=== PATIENT | female | born 1950 | race Caucasian/White ===

== ENCOUNTER → 2024-02-03 | Outpatient (CLI) | payer MEDICARE, SELFPAY ==
--- NOTE | 2024-02-03 11:14 | NEURO ---
NCS and/or EMG Patient Report Ordering Doctor: Freddy Claire DATE OF SERVICE: 02/03/24 Raven presents with numbness and tingling both hands, worse on the right side. Electrodiagnostic findings: Right median motor nerve demonstrates prolonged latency with normal amplitude and conduction velocity. Left median motor nerve demonstrates normal distal latency and amplitude with normal conduction velocity. Ulnar motor response is normal bilaterally. Normal median and ulnar F?waves. Prolonged median sensory latency at the wrist bilaterally. Normal ulnar and radial sensory responses. Needle EMG testing was performed in the upper limbs. All muscles tested showed no evidence of denervation with normal motor unit action potentials. Electrodiagnostic impression: This is an abnormal study in the upper limbs. 1. Electrodiagnostic findings suggestive of bilateral median mononeuropathy. This is consistent with a mild to moderate right carpal tunnel syndrome and a mild left carpal tunnel syndrome. 2. No electrodiagnostic evidence is noted for cervical radiculopathy. Multi Select Codes Neurology Neurology Interp Codes: 69352-55 Musc test done w/n test comp (interp) (2) and 59728-02 Nrv cndj test 9-10 studies (interp)
== END | disposition home or self-care (01) ==
PROVIDERS: PCP Student in an Organized Health Care Education/Training Program; Referring Provider Orthopaedic Surgery Sports Medicine; Visit Provider Orthopaedic Surgery Sports Medicine
DX: G56.03 Carpal tunnel syndrome, bilateral upper limbs (principal)
CPT/HCPCS: 95886; 95911

== ENCOUNTER 2024-03-09 05:54 | Day surgery (SDC) | payer MEDICARE, SELFPAY ==
--- OUTSIDE RECORDS SUMMARY | 2024-03-09 05:56 | XMS RPT_ITS | CCD ---
Author Organization [facility] Care Team Providers Care Supervising Law Enforcement Analyst Name Role Phone BO CORDERO Attending Unavailable NONSTAFF, PHYSI Primary Care Unavailable Dallas Morrison DO Primary Care Provider Mendez DODallas Primary Care Provider Dallas Morrison DO Primary Care Provider Mendez DODallas Primary Care Provider DALLAS MORRISON Primary Care Unavailable DALLAS MORRISON Referring Unavailable DALLAS MORRISON Primary Care Unavailable CHEPE HOANG Attending Unavailable CHEPE HOANG Referring Unavailable DALLAS MORRISON Primary Care Unavailable CHEPE HOANG Referring Unavailable DALLAS MORRISON Primary Care Unavailable DALLAS MORRISON Primary Care Unavailable CHEPE HOANG Attending Unavailable Medications Current Medications Medication Drug Class(es) Dates Sig (Normalized) Sig (Original) amitriptyline hydrochloride 50 mg oral tablet (20 sources) Tricyclic Antidepressant Start: 09-28-2020 End: 11-27-2023 take 1 tablet by mouth once daily at bedtime amitriptyline (ELAVIL) 50 mg tablet Take 1 tablet by mouth daily at bedtime. 90 tablet 3 11/27/2023 Active Comment on above: Take 1 tablet by ki th daily at bedtime. azithromycin 250 mg oral tablet (1 source) Macrolide Antimicrobial Start: 03-11-2022 End: 03-16-2022 azithromycin (ZITHROMAX Z-LLUVIA) 250 mg tablet Indications: Travel advice encounter Take 2 tablets day one, then, 1 tablet daily until gone. 6 tablet 0 03/11/2022 03/16/2022 Active Comment on above: Take 2 tablets day o ne, then, 1 tablet daily until gone. ciprofloxacin 500 mg oral tablet (3 sources) Quinolone Antimicrobial Start: 03-11-2022 End: 03-18-2022 take 1 tablet by mouth twice daily ciprofloxacin HCl (CIPRO) 500 mg tablet Indications: Acute cystitis without hematuria Take 1 tablet by mouth twice daily for 7 days. 14 tablet 1 03/11/2022 03/18/2022 Active Comment on above: Take 1 tablet by ki th twice daily for 7 days. levothyroxine sodium 0.075 mg oral tablet (19 sources) l-Thyroxine Start: 01-08-2023 End: 11-27-2023 take 1 tablet by mouth once daily for thyroid dysfunction levothyroxine (LEVOXYL) 75 mcg tablet Take 1 tablet by mouth once daily. Take on empty stomach. For thyroid. 90 tablet 1 11/27/2023 Active Start: 03-31-2022 End: 01-08-2023 take 1 tablet by mouth once daily for thyroid dysfunction levothyroxine (LEVOXYL) 50 mcg tablet Indications: Subclinical hypothyroidism Take 1 tablet by mouth once daily. Take on empty stomach. For Thyroid 30 tablet 1 03/31/2022 06/19/2022 Discontinued Comment on above: Take 1 tablet by ki th once daily. Take on empty stomach. For Thyroid Take 1 tablet by ki th once daily. Take on empty stomach. For thyroid. losartan potassium 25 mg oral tablet (20 sources) Angiotensin 2 Receptor Anabelle Start: 09-29-19 21 End: 11-27-19 take 1 tablet by mouth once daily losartan (COZAAR) 25 mg tablet Indications: Hypertension, essential Take 1 tablet by mouth once daily. 90 tablet 3 11/27/2023 Active Comment on above: Take 1 tablet by ki th once daily. ondansetron 4 mg disintegrating oral tablet (18 sources) Serotonin-3 Receptor Antagonist Start: 03-11-20 End: 11-27-19 24 take 1 tablet by mouth every six hours as needed for nausea ondansetron orally disintegrating (ZOFRAN ODT) 4 mg disintegrating tablet Indications: Travel advice encounter Take 1 tablet by mouth every 6 hours as needed for nausea/vomiting. 20 tablet 1 06/19/2022 11/27/2023 Discontinued Comment on above: Take 1 tablet by ki th every 6 hours as needed for nausea/vomiting. pantoprazole 40 mg delayed release oral tablet (20 sources) Proton Pump Inhibitor Start: 12-20-19 End: 11-27-19 24 take 1 tablet by mouth once daily pantoprazole DR (PROTONIX) 40 mg tablet Take 1 tablet by mouth once daily. 90 tablet 3 11/27/2023 Active Start: 12-17-2021 End: 12-19-2021 pantoprazole (PROTONIX) 40 m g grps Take 1 Packet by mouth DAILY (6 AM). For LPR reflux 90 Each 1 12/17/2021 12/19/2021 Discontinued Comment on above: Take 1 Packet by ki th DAILY (6 AM). For LPR reflux Take 1 tablet by ki th daily before breakfast. Take on empty stomach, 1/2 hr before meal. TAKE 1 TABLET BY KI TH 30 MINUTES BEFORE BREAKFAST ON AN EMPTY STOMACH Take 1 tablet by ki th once daily. rosuvastatin calcium 5 mg oral tablet (20 sources) HMG-CoA Reductase Inhibitor Start: 1 End: 4 take 1 tablet by mouth once daily at bedtime rosuvastatin (CRESTOR) 5 mg tablet Indications: Mixed hyperlipidemia Take 1 tablet by mouth daily at bedtime. 90 tablet 3 11/27/2023 Active Comment on above: Take 1 tablet by ki th daily at bedtime. sertraline 100 mg oral tablet (20 sources) Serotonin Reuptake Inhibitor Start: 2 End: 5 take 1 tablet by mouth once daily sertraline (ZOLOFT) 100 mg tablet Indications: Reactive depression Take 1 tablet by mouth once daily. For mood 90 tablet 1 11/27/2023 05/25/2024 Active Start: 06-05-2021 End: 12-17-2021 take 1 tablet by mouth once daily sertraline (ZOLOFT) 50 mg tablet Indications: Reactive depression Take 1 tablet by mouth once daily. 90 tablet 1 06/05/2021 12/17/2021 Discontinued Comment on above: Take 1 tablet by ki th once daily. Take 1 tablet by ki th once daily. For mood topiramate 25 mg oral tablet (20 sources) Start: 03-05-20 21 End: 11-27-19 24 take 1 tablet by mouth twice daily topiramate (TOPAMAX) 25 mg tablet Indications: Migraine without aura and without status migrainosus, not intractable Take 1 tablet by mouth two times a day. 120 tablet 5 11/27/2023 Active Comment on above: Take 1 tablet by ki twice daily. triamcinolone acetonide 1 mg/ml topical cream (18 sources) Corticosteroid Start: 03-11-20 End: 11-27-19 triamcinolone acetonide (KENALOG) 0.1 % cream Indications: Dermatitis Apply 1 application to affected area twice daily as needed. Apply sparingly to area for rash/itching. 30 g 1 06/19/2022 11/27/2023 Discontinued Comment on above: Apply 1 application to affected area twice daily as needed. Apply sparingly to area for rash/itching. Completed/Discontinued Medications Medication Drug Class(es) Dates Sig (Normalized) Sig (Original) naproxen 500 mg oral tablet (2 sources) Nonsteroidal Anti-inflammatory Drug Start: 11-27-2023 End: 12-11-2023 take 1 tablet by mouth twice daily at mealtime naproxen (NAPROSYN) 500 mg tablet Indications: Right hand pain , Right hand weakness Take 1 tablet by mouth two times a day with meals for 14 days. Take with food. 28 tablet 11/27/2023 12/11/2023 Problems Active Problems Problem Classification Problem Date Documented Date Episodic/Chronic Administrative/social admission (15 sources) Patient encounter status; Translations: [Encounter for health counseling related to travel] Onset: 06-07-2007 Resolved: 11-21-2009 Episodic Disorders of lipid metabolism (20 sources) Hyperlipidemia; Translations: [Hyperlipidemia, unspecified] Onset: 11-02-2013 11-02-2013 Chronic Esophageal disorders (20 sources) Gastro-esophageal reflux disease with esophagitis; Translations: [Gastroesophageal reflux disease with esophagitis without hemorrhage] Onset: 12-17-2021 Chronic Essential hypertension (20 sources) Essential hypertension; Translations: [Essential (primary) hypertension] Onset: 03-05-2021 03-05-2021 Chronic Genitourinary symptoms and ill-defined conditions (2 sources) Abnormal urine odor; Translations: [Unspecified abnormal findings in urine] Episodic Headache; including migraine (20 sources) Migraine; Translations: [Migraine, unspecified, not intractable, without status migrainosus] Onset: 02-15-2005 11-28-2015 Chronic Mood disorders (20 sources) Reactive depression (situational); Translations: [Major depressive disorder, single episode, unspecified] Onset: 12-17-2021 Chronic Nutritional deficiencies (3 sources) Vitamin D deficiency; Translations: [Vitamin D deficiency, unspecified] Onset: 02-17-2024 01-06-2023 Chronic Nutritional deficiencies (1 source) Iron deficiency; Translations: [Iron deficiency] 01-06-2023 Episodic Other aftercare (1 source) Other residential (current) drug therapy; Translations: [OTHER HALFWAY (CURRENT) DRUG THERAPY] Onset: 07-16-2018 Episodic Other connective tissue disease (1 source) Pain in right hand; Translations: [Pain in right hand] 11-27-2023 Episodic Other connective tissue disease (1 source) Trigger thumb of right hand; Translations: [Trigger thumb, right thumb] 11-27-2023 Episodic Other connective tissue disease (1 source) Weakness of right hand; Translations: [Other symptoms and signs involving the musculoskeletal system] 11-27-2023 Episodic Other connective tissue disease (1 source) Pain in right hand; Translations: [Right hand pain] Onset: 11-27-2023 Episodic Other connective tissue disease (1 source) Other symptoms and signs involving the musculoskeletal system; Translations: [Right hand weakness] Onset: 11-27-2023 Episodic Other non-traumatic joint disorders (1 source) Effusion, left knee; Translations: [EFFUSION, LEFT KNEE] Onset: 07-16-2018 Episodic Other screening for suspected conditions (not mental disorders or infectious disease) (3 sources) Thyroid function tests abnormal; Translations: [Abnormal results of thyroid function studies] Onset: 10-07-2023 Episodic Residual codes; unclassified (1 source) Pain; Translations: [Pain, unspecified] 12-14-2023 Episodic Residual codes; unclassified (1 source) Other specified postprocedural states; Translations: [OTHER SPECIFIED POSTPROCEDURAL STATES] Onset: 07-16-2018 Screening and history of mental health and substance abuse codes (1 source) Encounter for screening examination for other mental health and behavioral disorders; Translations: [Encounter for screening examination for other mental health and behavioral disorders] Onset: 02-17-2024 Episodic Thyroid disorders (6 sources) Subclinical hypothyroidism; Translations: [Other specified hypothyroidism] Onset: 02-17-2024 Chronic Past or Other Problems Problem Classification Problem Date Documented Date Episodic/Chronic Allergic reactions (20 sources) Inflammatory dermatosis; Translations: [Dermatitis, unspecified] Onset: 03-11-2022 Episodic Diabetes mellitus without complication (20 sources) Impaired fasting glycemia; Translations: [Impaired fasting glucose] Onset: 03-05-2021 03-05-2021 Episodic Headache; including migraine (7 sources) Headache; Translations: [Headache] Onset: 01-13-2006 Resolved: 11-21-2009 11-21-2009 Episodic Malaise and fatigue (20 sources) Fatigue; Translations: [Other fatigue] Onset: 03-11-2022 Episodic Mycoses (7 sources) Onychomycosis due to dermatophyte ; Translations: [Tinea unguium] Onset: 05-19-2006 Resolved: 11-21-2009 11-21-2009 Episodic Other circulatory disease (20 sources) Clearing throat - hawking; Translations: [Other specified symptoms and signs involving the circulatory and respiratory systems] Onset: 12-17-2021 Episodic Other skin disorders (20 sources) Loss of hair; Translations: [Nonscarring hair loss, unspecified] Onset: 03-11-2022 Episodic Other upper respiratory disease (20 sources) Hoarse; Translations: [Dysphonia] Onset: 12-17-2021 Episodic Residual codes; unclassified (20 sources) Postmenopausal state; Translations: [Asymptomatic menopausal state] Onset: 03-05-2021 03-05-2021 Episodic Sprains and strains (20 sources) Strain of hamstring muscle; Translations: [Strain of muscle, fascia and tendon of the posterior muscle group at thigh level, left thigh, initial encounter] Onset: 03-13-2017 03-13-2017 Episodic Urinary tract infections (20 sources) Acute cystitis; Translations: [Acute cystitis without hematuria] Onset: 03-11-2022 Episodic Results Test Name Value Interpretation Reference Range Facility CNOVon 02-17-2024 CNOV Office Visit (FAMPWS) RAVEN [id number]) 1950 F Date Time Provider Department 02/17/24 2:20 PM CHEPE HOANG During your visit today, we recorded the following information about you: Pulse Respiration Blood pressure Weight 86/minute 16/minute 118/78 69.1 kg Height 1.62 m Chepe Hoang APRN.CNP 02/17/2024 2:59 PM Signed Raven Jj is a 73 year old female here for a Medicare wellness visit. Medicare Health Risk Assessment General Health Exercise: Minutes/Day 30 min Exercise: Days/Week 4 days Alcohol: Daily Use 2-3 times a week Alcohol: Drinks/Day 1 or 2 Alcohol: 6 or more drinks Never Feel off balance Yes Concerns: Teeth/Dentures No Concerns: Sexual function No Troubled by feelings None of the above Frequency: Eating healthy diet Nearly every day ADLs requiring help None of the above Safety precautions in home/vehicle Yes Smoke, vape, chews tobacco No Difficulty hearing No Difficulty seeing Yes Current Providers Specialists: I have reviewed specialist-related care of the patient in the medical record. Medical/Family history review Reviewed and updated problem list, medical/surgical/fam beulah/social history, medications, and allergies. Opioid use review Opioid Medications (last 90 days) No data to display Anxiety/Depression screening PHQ-9 Score: 2 (Minimal Depression) Recommendation: no further intervention at this time Cognitive screening Mini Cog Score: 3 Cognitive screening reviewed and No further action needed (score 3-5). Functional Observation Was the patient's Timed Up AND Go test unsteady or >= 12 seconds? No Advance Care Planning Surrogate decision maker and/or advance care plan documented Joe Sweat Measurements BP 118/78 (BP Site: Left Arm, BP Position: Sitting, BP Cuff Size: Regular Adult) Pulse 86 Resp 16 Ht 162 cm (5' 3.78 ) Wt 69.1 kg (152 lb 5.4 oz) SpO2 96% BMI 26.33 kg/m? Vision Screening: Follows with optometry/ophthalmol ogy Assessment/Plan Medicare annual wellness visit, subsequent (Z00.00) - Counseled on healthy diet and regular exercise - Fall avoidance information provided - Personalized prevention plan provided;tatianna Hoang APRN.CNP Allergies As of Date: 02/17/2024 (No Known Allergies) Date Reviewed: 02/17/2024 Reviewed by: Leola Garcia MA - Fully Assessed Reason for Visit: Medicare Wellness Exam [4060] Primary Visit Diagnosis:Mixed hyperlipidemia [E78.2] Other Visit Diagnoses:Encounter for screening examination for other mental health and behavioral disorders [Z13.39] Hypertension, essential [I10] Impaired fasting glucose [R73.01] Subclinical hypothyroidism [E03.8] Vitamin D deficiency [E55.9] Encounter for vitamin deficiency screening [Z13.21] Order(s):ANXIETY SCREENING [1091821] Order #: [id number]: 1 COMPLETE BLOOD COUNT [SQCBC] Order #: [id number] FUTURE COMPREHENSIVE METABOLIC PANEL [SQCMP] Order #: [id number] FUTURE VITAMIN B12 [SQB12] Order #: [id number] FUTURE VITAMIN D 25 HYDROXY [SQVITD] Order #: [id number] FUTURE HEMOGLOBIN A1C [BEHXN7Z] Order #: [id number] FUTURE LIPID PANEL BASIC [SQLIPB] Order #: [id number] FUTURE THYROID STIMULATING HORMONE [SQTSH] Order #: [id number] FUTURE T4 FREE/FREE THYROXINE [SQFT4] Order #: [id number] FUTURE T3 [SQT3] Order #: [id number] FUTURE Prescriptions as of 02/17/2024 - amitriptyline (ELAVIL) 50 mg tablet Take 1 tablet by mouth daily at bedtime. - sertraline (ZOLOFT) 100 mg tablet Take 1 tablet by mouth once daily. For mood - levothyroxine (LEVOXYL) 75 mcg tablet Take 1 tablet by mouth once daily. Take on empty stomach. For thyroid. - losartan (COZAAR) 25 mg tablet Take 1 tablet by mouth once daily. - pantoprazole DR (PROTONIX) 40 mg tablet Take 1 tablet by mouth once daily. - topiramate (TOPAMAX) 25 mg tablet Take 1 tablet by mouth two times a day. - rosuvastatin (CRESTOR) 5 mg tablet Take 1 tablet by mouth daily at bedtime. Problem List As Of Date 02/17/2024 Noted Resolved Migraine headache [G43.909] 02/15/2005 Headache [R51] 01/13/2006 11/21/2009 Dermatophytosis of Nail [B35.1] 05/19/2006 11/21/2009 Encounter for Long-Term (Current) Use of Other *06/07/2007 11/21/2009 Routine gynecological examination [Z01.419] 11/02/2013 Hyperlipidemia [E78.5] 11/02/2013 Left hamstring muscle strain [S76.312A] 03/13/2017 Hypertension, essential [I10] 03/05/2021 Impaired fasting glucose [R73.01] 03/05/2021 Post-menopausal [Z78.0] 03/05/2021 Gastroesophageal reflux disease with esophagiti* Hoarseness [R49.0] 12/17/2021 Throat clearing [R09.89] 12/17/2021 Mixed hyperlipidemia [E78.2] 12/17/2021 Reactive depression [F32.9] 12/17/2021 Acute cystitis without hematuria [N30.00] 03/11/2022 Hair loss [L65.9] 03/11/2022 Dermatitis [L30.9] 03/11/2022 Fatigue [R53.83] (more content not included)... Normal [facility] XR Hand - right PA and Later al and Obliqueon 12-01-2023 IMPRESSION: 1. Osteoarthritis of the right hand Ticket Speculator: GWYN Transcribe Date/Time: Dec 01 2023 5:35P Dictated by : INES DAN MD This examination was interpreted and the report reviewed and electronically signed by: INES DAN MD on Dec 01 2023 5:36PM [facility] DIVISION OF RADIOLOGY * * *Final Report* * * DATE OF EXAM: Nov 28 2023 8:50AM WOX [id number] - XR HAND 3V PA/LAT/OBL RT / PROCEDURE REASON: multiple diagnoses * * * * Physician Interpretation * * * * HAND RADIOGRAPHS - RIGHT HISTORY: Right hand pain Right hand weakness TECHNOLOGIST PROVIDED HISTORY (if applicable): Pain and swelling though out the fingers of the right hand x 2 weeks. No injury TECHNIQUE: XR HAND 3V PA/LAT/OBL RT COMPARISON: None available RESULT: Bone mineralization appears normal. Right hand: There avfb-sd-guzfrxcy first are no visualized articular erosions in the hand. No focal bony abnormality is identified. Joint spaces are preserved, and there is no soft tissue swelling. Narrowing of the first CMC and triscaphe joints DIVISION OF RADIOLOGY Provider, [facility] [place] - 12/01/2023 * * *Final Report* * * DATE OF EXAM: Nov 28 2023 8:50AM WOX 5346 - XR HAND 3V PA/LAT/OBL RT / PROCEDURE REASON: multiple diagnoses * * * * Physician Interpretation * * * * HAND RADIOGRAPHS - RIGHT HISTORY: Right hand pain Right hand weakness TECHNOLOGIST PROVIDED HISTORY (if applicable): Pain and swelling though out the fingers of the right hand x 2 weeks. No injury TECHNIQUE: XR HAND 3V PA/LAT/OBL RT COMPARISON: None available RESULT: Bone mineralization appears normal. Right hand: There yxaz-hr-mqzbfdfg first are no visualized articular erosions in the hand. No focal bony abnormality is identified. Joint spaces are preserved, and there is no soft tissue swelling. Narrowing of the first CMC and triscaphe joints IMPRESSION IMPRESSION: 1. Osteoarthritis of the right hand [facility] Transcribe Date/Time: Dec 01 2023 5:35P Dictated by : INES DAN MD This examination was interpreted and the report reviewed and electronically signed by: INES DAN MD on Dec 01 2023 5:36PM EST [facility] XR Hand - right PA and Later al and ObliqueOrdered By: [facility] Provider on 12-01-2023 [facility] XR HAND 3V PA/LAT/OBL RTon 0 11-28-2023 XR HAND 3V PA/LAT/OBL RT * * *Final Report* * * DATE OF EXAM: Nov 28 2023 8:50AM WOX 5346 - XR HAND 3V PA/LAT/OBL RT / PROCEDURE REASON: multiple diagnoses * * * * Physician Interpretation * * * * HAND RADIOGRAPHS - RIGHT HISTORY: Right hand pain Right hand weakness TECHNOLOGIST PROVIDED HISTORY (if applicable): Pain and swelling though out the fingers of the right hand x 2 weeks. No injury TECHNIQUE: XR HAND 3V PA/LAT/OBL RT COMPARISON: None available RESULT: Bone mineralization appears normal. Right hand: There rpql-an-qscahfhd first are no visualized articular erosions in the hand. No focal bony abnormality is identified. Joint spaces are preserved, and there is no soft tissue swelling. Narrowing of the first CMC and triscaphe joints IMPRESSION: 1. Osteoarthritis of the right hand Ticket Speculator: [facility] Transcribe Date/Time: Dec 01 2023 5:35P Dictated by : INES DAN MD This examination was interpreted and the report reviewed and electronically signed by: INES DAN MD on Dec 01 2023 5:36PM EST [id number] Normal [facility] XR Hand - right PA and Later al and Obliqueon 11-28-2023 Radiology Study observation (narrative) [facility] CNOVon 11-27-2023 CNOV Office Visit (FAMPWS) RAVEN JJ ([id number]) 1950 F Date Time Provider Department 11/27/23 7:40 AM CHEPE HOANG During your visit today, we recorded the following information about you: Pulse Respiration Blood pressure Weight 83/minute 16/minute 124/86 70.6 kg Chepe Hoang APRN.NEUROLOGY SPECIALIST 11/27/2023 8:17 AM Signed Chief Complaint Patient presents with: Hand Pain: Right hand x 2 weeks, worse in the morning, numbness, no injury pt aware of. HPI Raven Junior Jj is a 73 year old female who presents here today for Above Complaints.. Right hand pain-2 weeks ago her fingers were numb in the morning. Feels like an aching tooth, is painful specifically in the top of her palm. Cannot grab things, weakness in this hand as well. Thumb is sticking intermittently when bending. Does have hx arthritis, not sure if this would be a cause. Tylenol helps some. Has not used ice. No injury. Past medical history, appointments, medications, allergies reviewed. Previous Medical History PAST MEDICAL HISTORY Diagnosis Date Advance care planning 12/17/2021 Joe Arrhythmia Cardiac murmur 01/16/2014 Diverticulosis of colon (without mention of hemorrhage) Asymptomatic, found on colonoscopy Herpes zoster with other nervous system complications(053.19 ) Hypercholesteremia Hypertension Migraine Previous Surgical History PAST SURGICAL HISTORY Procedure Laterality Date ARTHROSCOPY KNEE DIAGNOSTIC W/WO SYNOVIAL BX SPX Arthroscopy, right knee COLONOSCOPY 09/19/2014 incomplete d/t very tortuous colon COLONOSCOPY FLX DX W/COLLJ SPEC WHEN PFRMD 06/14/2004 Colonoscopy, screening EGD 02/27/2022 EYE SURGERY HX KNEE DEBRIDEMENT TENDON/MUSCLE, SCOPE Left 06/2018 LASIK 90s LIG/TRNSXJ FLP TUBE ABDL/VAG APPR UNI/BI Tubal ligation PAST SURGICAL HISTORY OF fatty tumor excised below left breast PAST SURGICAL HISTORY OF 03/21/2008 bilateral foot surgery - plantar fascia Family History FAMILY HISTORY Problem Relation Age of Onset Diabetes Mother Heart Mother TX /cabg x4 Allergies Mother Cancer Mother lymphoma other (hypercholesterolemi a) Mother Heart Father TX-pacmaker Prostate Cancer Father Lipids Father Cancer Father bone Patient Allergies ALLERGIES No Known Allergies Current Medications Current Outpatient Medications on File Prior to Visit Medication Sig levothyroxine (LEVOXYL) 75 mcg tablet Take 1 tablet by mouth once daily. Take on empty stomach. For thyroid. amitriptyline (ELAVIL) 50 mg tablet Take 1 tablet by mouth daily at bedtime. pantoprazole DR (PROTONIX) 40 mg tablet Take 1 tablet by mouth once daily. losartan (COZAAR) 25 mg tablet Take 1 tablet by mouth once daily. rosuvastatin (CRESTOR) 5 mg tablet Take 1 tablet by mouth daily at bedtime. topiramate (TOPAMAX) 25 mg tablet Take 1 tablet by mouth twice daily. sertraline (ZOLOFT) 100 mg tablet Take 1 tablet by mouth once daily. For mood ondansetron orally disintegrating (ZOFRAN ODT) 4 mg disintegrating tablet Take 1 tablet by mouth every 6 hours as needed for nausea/vomiting. triamcinolone acetonide (KENALOG) 0.1 % cream Apply 1 application to affected area twice daily as needed. Apply sparingly to area for rash/itching. No current facility-administere d medications on file prior to visit. Social History Social History Tobacco Use Smoking status: Former Types: Cigarettes Quit date: 05/18/1984 Years since quittin.5 Smokeless tobacco: Never Tobacco comments: quit in 1969/ Vaping Use Vaping Use: Never used Substance Use Topics Alcohol use: Yes Comment: occasional Drug use: No Review of Symptoms REVIEW OF SYSTEMS See HPI, otherwise negative EXAM: BP 124/86 (BP Site: Left Arm, BP Position: Sitting, BP Cuff Size: Regular Adult) Pulse 83 Resp 16 Wt 70.6 kg (155 lb 9.6 oz) SpO2 95% BMI 26.70 kg/m? General Appearance: Well appearing, alert, in no acute distress, well-hydrated, well nourished.. Musculoskeletal: mild swelling to fingers of right hand, good cap refill, pain with palpation of upper palm-specifically just under her ring finger, no pain to the top of her hand, unable to make a complete fist. Psychiatric: pleasant, cooperative. Health Maintenance List RSV Vaccine(1 - 1-dose 60+ series) Never done DTaP,Tdap,Td Vaccine(2 - Td or Tdap) due on 06/07/2017 Covid-19 Vaccine( season) due on 01/16/2023 Annual PCP Team Chronic Disease Visit due on 01/07/2024 BP Controlled (<130/80) due on 01/07/2024 Influenza Vaccine(1) due on 01/17/2024 Colorectal Cancer Screening due on 09/19/2024 Mammogram Screening due on 10/06/2024 Diabetes Screening due on 01/07/2026 Lipid Screening due on 01/08/2028 Bone Density Screening Completed Hepatitis C Screening Completed Shingrix Vaccine Completed Pneumococcal Vaccine: 65+ Completed (more content not included)... Normal [facility] CNCOon 10-07-2023 CNCO HNO ID: [id number] Author: COORDINATOR, MAMMOGRAPHY, ? Service: ? Author Type: Physician Type: Letter Filed: 10/07/2023 12:38 Note Text: October 07, 2023 PID: [id number] Raven Jj [address] [place] [address] Dear Ms. Jj, We are pleased to inform you that the results of your recent breast imaging exam on 10/07/2023 are normal. Your mammogram demonstrates that you have dense breast tissue, which could hide abnormalities. Dense breast tissue, in and of itself, is a relatively common condition. Therefore, this information is not provided to cause undue concern; rather, it is to raise your awareness and promote discussion with your health care provider regarding the presence of dense breast tissue in addition to other risk factors. Early detection of cancer is very important. We also understand recommendations regarding breast cancer screening are controversial. Please discuss with your primary care provider which strategy is best for you and whether a mammogram is right for you. Your imaging studies and report will be kept on file at [facility] as part of your permanent medical record and are available for your continuing care. Thank you for allowing us to help in meeting your health care needs. Sincerely, Dr. Clayton Interpreting Radiologist [facility] (Normal over 40) Normal [facility] CNPNon 10-07-2023 CNPN Telephone (FAMPWS) RAVEN JJ ([id number]) 1950 F Date Time Provider Department 10/07/23 [facility] During your visit today, we recorded the following information about you: Dallas Morrison DO 10/07/2023 12:44 PM Signed Please inform patient that her mammogram is normal/negative. She will need routine screening mammogram in 1 year. Thanks KASIE Padron Susan LPN 10/07/2023 1:22 PM Signed Pt. informed via my Chart. Allergies As of Date: 10/07/2023 (No Known Allergies) Date Reviewed: 01/06/2023 Reviewed by: Keiry Ac LPN - Fully Assessed Prescriptions as of 10/07/2023 - levothyroxine (LEVOXYL) 75 mcg tablet Take 1 tablet by mouth once daily. Take on empty stomach. For thyroid. - amitriptyline (ELAVIL) 50 mg tablet Take 1 tablet by mouth daily at bedtime. - pantoprazole DR (PROTONIX) 40 mg tablet Take 1 tablet by mouth once daily. - losartan (COZAAR) 25 mg tablet Take 1 tablet by mouth once daily. - rosuvastatin (CRESTOR) 5 mg tablet Take 1 tablet by mouth daily at bedtime. - topiramate (TOPAMAX) 25 mg tablet Take 1 tablet by mouth twice daily. - sertraline (ZOLOFT) 100 mg tablet Take 1 tablet by mouth once daily. For mood - ondansetron orally disintegrating (ZOFRAN ODT) 4 mg disintegrating tablet Take 1 tablet by mouth every 6 hours as needed for nausea/vomiting. - triamcinolone acetonide (KENALOG) 0.1 % cream Apply 1 application to affected area twice daily as needed. Apply sparingly to area for rash/itching. Problem List As Of Date 10/07/2023 Noted Resolved Migraine headache [G43.909] 02/15/2005 Headache [R51] 01/13/2006 11/21/2009 Dermatophytosis of Nail [B35.1] 05/19/2006 11/21/2009 Encounter for Long-Term (Current) Use of Other *06/07/2007 11/21/2009 Routine gynecological examination [Z01.419] 11/02/2013 Hyperlipidemia [E78.5] 11/02/2013 Left hamstring muscle strain [S76.312A] 03/13/2017 Hypertension, essential [I10] 03/05/2021 Impaired fasting glucose [R73.01] 03/05/2021 Post-menopausal [Z78.0] 03/05/2021 Gastroesophageal reflux disease with esophagiti* Hoarseness [R49.0] 12/17/2021 Throat clearing [R09.89] 12/17/2021 Mixed hyperlipidemia [E78.2] 12/17/2021 Reactive depression [F32.9] 12/17/2021 Acute cystitis without hematuria [N30.00] 03/11/2022 Hair loss [L65.9] 03/11/2022 Dermatitis [L30.9] 03/11/2022 Fatigue [R53.83] 03/11/2022 Encounter Status:Closed by OLIVA MONTANA LPN on 10/07/23 Normal [facility] SCREENINGon 10-07-2023 [facility] SCREENING * * *Final Report* * * DATE OF EXAM: Oct 07 2023 9:57AM [place] [facility] [facility] SCREENING / PROCEDURE REASON: Encounter for screening mammogram for malignant neoplasm of breast * * * * Physician Interpretation * * * * RESULT: #[id number] - [facility] SCREENING BILATERAL DIGITAL SCREENING MAMMOGRAM WITH CAD: 10/07/2023 HISTORY: Encounter For Screening Mammogram For Malignant Neoplasm Of Breast / Screening Mammogram-Patient reports NO symptoms. /priors available for comparison. RESULT: TECHNIQUE: The study was acquired using full field digital technology and interpreted from soft copy. Current study was also evaluated with a Computer Aided Detection (CAD). Comparison is made to exams dated: 04/03/2022 mammogram, 03/28/2021 mammogram, 03/29/2020 mammogram, and 02/25/2019 mammogram - [facility]. The breasts are heterogeneously dense, which may obscure small masses. No significant masses, calcifications, or other findings are seen in either breast. There has been no significant interval change. IMPRESSION: NEGATIVE There is no mammographic evidence of malignancy. A 1 year screening mammogram is recommended. Ro Clayton M.D., jr/edin:10/07/2023 12:38:03 Apparel Designer(s): RT Michael(R)(M), [facility] letter sent: Normal over 40 Mammogram BI-RADS: 1 Negative Multiple national specialty organizations have released breast cancer screening guidelines for women at average risk for developing breast cancer - guidelines that are based on both evidence and opinion, yet differ on when to start and how often to screen for breast cancer. With representation from Breast Imaging, Internal Medicine, Women's Health, Family Medicine, and Medical/Surgical Oncology, the [facility] has carefully reviewed the data and reached the following consensus: 1) All women should engage in shared decision-making with their providers to decide when to start and how often to screen; 2) All women should have the opportunity to start screening mammography at age 40; 3) For women ages 45-55, we recommend annual screening mammograms; 4) For women ages 55 and over, we support both the transition from an annual to a biennial interval if this aligns more with patient's values and preferences, or continuation with annual screening; 5) All women should discuss with their providers when to stop screening mammograms. Ticket Speculator: Edin Transcribe Date/Time: Oct 07 2023 9:36A Dictated by: RO CLAYTON MD This examination was interpreted and the report reviewed and electronically signed by: RO CLAYTON MD on Oct 07 2023 12:38PM EST [id number] CN Normal [facility] Breast Screeningon 2023 IMPRESSION: NEGATIVE There is no mammographic evidence of malignancy. A 1 year screening mammogram is recommended. Ro Clayton M.D., jr/edin:10/07/2023 12:38:03 Apparel Designer(s): RT Michael(R)(M), [facility] letter sent: Normal over 40 Mammogram BI-RADS: 1 Negative Multiple national specialty organizations have released breast cancer screening guidelines for women at average risk for developing breast cancer - guidelines that are based on both evidence and opinion, yet differ on when to start and how often to screen for breast cancer. With representation from Breast Imaging, Internal Medicine, Women's Health, Family Medicine, and Medical/Surgical Oncology, the [facility] has carefully reviewed the data and reached the following consensus: 1) All women should engage in shared decision-making with their providers to decide when to start and how often to screen; 2) All women should have the opportunity to start screening mammography at age 40; 3) For women ages 45-55, we recommend annual screening mammograms; 4) For women ages 55 and over, we support both the transition from an annual to a biennial interval if this aligns more with patient's values and preferences, or continuation with annual screening; 5) All women should discuss with their providers when to stop screening mammograms. Ticket Speculator: Edin Transcribe Date/Time: Oct 07 2023 9:36A Dictated by: RO CLAYTON MD This examination was interpreted and the report reviewed and electronically signed by: RO CLAYTON MD on Oct 07 2023 12:38PM EST DIVISION OF RADIOLOGY * * *Final Report* * * DATE OF EXAM: Oct 07 2023 9:57AM [facility] 0581 - [facility] SCREENING / PROCEDURE REASON: Encounter for screening mammogram for malignant neoplasm of breast * * * * Physician Interpretation * * * * RESULT: #[id number] - [facility] SCREENING BILATERAL DIGITAL SCREENING MAMMOGRAM WITH CAD: 10/07/2023 HISTORY: Encounter For Screening Mammogram For Malignant Neoplasm Of Breast / Screening Mammogram-Patient reports NO symptoms. /priors available for comparison. RESULT: TECHNIQUE: The study was acquired using full field digital technology and interpreted from soft copy. Current study was also evaluated with a Computer Aided Detection (CAD). Comparison is made to exams dated: 04/03/2022 mammogram, 03/28/2021 mammogram, 03/29/2020 mammogram, and 02/25/2019 mammogram - [facility]. The breasts are heterogeneously dense, which may obscure small masses. No significant masses, calcifications, or other findings are seen in either breast. There has been no significant interval change. DIVISION OF RADIOLOGY Provider, [facility] [place] - 10/07/2023 * * *Final Report* * * DATE OF EXAM: Oct 07 2023 9:57AM [facility] 0581 - [facility] SCREENING / PROCEDURE REASON: Encounter for screening mammogram for malignant neoplasm of breast * * * * Physician Interpretation * * * * RESULT: #[id number] - [facility] SCREENING BILATERAL DIGITAL SCREENING MAMMOGRAM WITH CAD: 10/07/2023 HISTORY: Encounter For Screening Mammogram For Malignant Neoplasm Of Breast / Screening Mammogram-Patient reports NO symptoms. /priors available for comparison. RESULT: TECHNIQUE: The study was acquired using full field digital technology and interpreted from soft copy. Current study was also evaluated with a Computer Aided Detection (CAD). Comparison is made to exams dated: 04/03/2022 mammogram, 03/28/2021 mammogram, 03/29/2020 mammogram, and 02/25/2019 mammogram - [facility]. The breasts are heterogeneously dense, which may obscure small masses. No significant masses, calcifications, or other findings are seen in either breast. There has been no significant interval change. IMPRESSION IMPRESSION: NEGATIVE There is no mammographic evidence of malignancy. A 1 year screening mammogram is recommended. Ro Clayton M.D., jr/edin:10/07/2023 12:38:03 Apparel Designer(s): RT Michael(Kieran)(M), [facility] letter sent: Normal over 40 Mammogram BI-RADS: 1 Negative Multiple national specialty organizations have released breast cancer screening guidelines for women at average risk for developing breast cancer - guidelines that are based on both evidence and opinion, yet differ on when to start and how often to screen for breast cancer. With representation from Breast Imaging, Internal Medicine, Women's Health, Family Medicine, and Medical/Surgical Oncology, the [facility] has carefully reviewed the data and reached the following consensus: 1) All women should engage in shared decision-making with their providers to decide when to start and how often to screen; 2) All women should have the opportunity to start screening mammography at age 40; 3) For women ages 45-55, we recommend annual screening mammograms; 4) For women ages 55 and over, we support both the transition from an annual to a biennial interval if this aligns more with patient's values and preferences, or continuation with annual screening; 5) All women should discuss with their providers when to stop screening mammograms. Ticket Speculator: Edin Transcribe Date/Time: Oct 07 2023 9:36A Dictated by: RO CLAYTON MD This examination was interpreted and the report reviewed and electronically signed by: RO CLAYTON MD on Oct 07 2023 12:38PM EST [facility] Radiology Study observation (narrative) [facility] MG Breast ScreeningOrdered B y: [facility] Provider on 10-07-2023 [facility] SCREENINGon 04-03-2022 [facility] CBC W Auto Differential pane l (Bld)on 03-11-2022 Basophils (Bld) [#/Vol] 0.10 10*3/uL <0.11 k/uL [facility] Basophils/100 WBC (Bld) 1.3 % [facility] Differential cell count method Nom (Bld) Auto [facility] Eosinophils (Bld) [#/Vol] 0.27 10*3/uL <0.46 k/uL [facility] Eosinophils/100 WBC (Bld) 3.5 % [facility] Erythrocyte distribution width (RBC) [Ratio] 12.7 % 11.5 - 15.0 % [facility] Hematocrit (Bld) [Volume fraction] 41.0 % 36.0 - 46.0 % [facility] Hemoglobin (Bld) [Mass/Vol] 13.2 g/dL 11.5 - 15.5 g/dL [facility] Immature granulocytes (Bld) [#/Vol] 0.03 10*3/uL <0.10 k/uL [facility] Immature granulocytes/100 WBC (Bld) 0.4 % [facility] Lymphocytes (Bld) [#/Vol] 2.69 10*3/uL 1.00 - 4.00 k/uL [facility] Lymphocytes/100 WBC (Bld) 34.9 % [facility] MCH (RBC) [Entitic mass] 29.7 pg 26.0 - 34.0 pg [facility] MCHC (RBC) [Mass/Vol] 32.2 g/dL 30.5 - 36.0 g/dL [facility] MCV (RBC) [Entitic vol] 92.1 fL 80.0 - 100.0 fL [facility] Monocytes (Bld) [#/Vol] 0.61 10*3/uL <0.87 k/uL [facility] Monocytes/100 WBC (Bld) 7.9 % [facility] Neutrophils (Bld) [#/Vol] 4.00 10*3/uL 1.45 - 7.50 k/uL [facility] Neutrophils/100 WBC (Bld) 52.0 % [facility] Nucleated RBC (Bld) [#/Vol] <0.01 k/uL [facility] Nucleated RBC/100 WBC (Bld) [Ratio] 0.0 /100 WBC [facility] Platelet mean volume (Bld) [Entitic vol] 10.3 fL 9.0 - 12.7 fL [facility] Platelets (Bld) [#/Vol] 292 10*3/uL 150 - 400 k/uL [facility] RBC (Bld) [#/Vol] 4.45 10*6/uL 3.90 - 5.2 0 m/uL [facility] WBC (Bld) [#/Vol] 7.70 10*3/uL 3.70 - 11. 00 k/uL [facility] DXA-AXIAL SKELETONon 022 [facility] Vital Signs Date Time Vital Sign Value Performing Clinician Nasreen johnson 02-17-2024 14:25-0400 Body height 162 cm Chepe Hoang APRN.CNP Work Phone: [facility] 02-17-2024 14:25-0400 Body mass index (BMI) [Ratio] 26.33 kg/m2 Chepe Hoang APRN.CNP Work Phone: [facility] 02-17-2024 14:25-0400 Body weight 69.1 kg Chepe Viktor NAIL STICKER.NEUROLOGY SPECIALIST Work Phone: [facility] 02-17-2024 14:25-0400 Diastolic blood pressure 78 mm[Hg] Chepe Viktor NAIL STICKER.NEUROLOGY SPECIALIST Work Phone: [facility] 02-17-2024 14:25-0400 Heart rate 86 /min Chepe Viktor NAIL STICKER.NEUROLOGY SPECIALIST Work Phone: [facility] 02-17-2024 14:25-0400 Respiratory rate 16 /min Chepe Viktor NAIL STICKER.NEUROLOGY SPECIALIST Work Phone: [facility] 02-17-2024 14:25-0400 SaO2% (BldA) [Mass fraction] 96 % Chepe Viktor NAIL STICKER.NEUROLOGY SPECIALIST Work Phone: [facility] 02-17-2024 14:25-0400 Systolic blood pressure 118 mm[Hg] Chepe Viktor NAIL STICKER.NEUROLOGY SPECIALIST Work Phone: [facility] 11-27-2023 07:42-0400 Body mass index (BMI) [Ratio] 26.7 kg/m2 Chepe Viktor NAIL STICKER.NEUROLOGY SPECIALIST Work Phone: [facility] 11-27-2023 07:42-0400 Body weight 70.58 kg Chepe Viktor NAIL STICKER.NEUROLOGY SPECIALIST Work Phone: [facility] 11-27-2023 07:42-0400 Diastolic blood pressure 86 mm[Hg] Chepe Viktor NAIL STICKER.NEUROLOGY SPECIALIST Work Phone: [facility] 11-27-2023 07:42-0400 Heart rate 83 /min Chepe Viktor NAIL STICKER.NEUROLOGY SPECIALIST Work Phone: [facility] 11-27-2023 07:42-0400 Respiratory rate 16 /min Chepe Viktor NAIL STICKER.NEUROLOGY SPECIALIST Work Phone: [facility] 11-27-2023 07:42-0400 SaO2% (BldA) [Mass fraction] 95 % Chepe Hogueutzman NAIL STICKER.NEUROLOGY SPECIALIST Work Phone: [facility] 11-27-2023 07:42-0400 Systolic blood pressure 124 mm[Hg] Chepe Hoang NAIL STICKER.NEUROLOGY SPECIALIST Work Phone: [facility] 01-06-2023 09:27-0400 Body height 162.6 cm Dallas Morrison DO Work Phone: [facility] 01-06-2023 09:27-0400 Body weight 73.94 kg Dallas Morrison DO Work Phone: [facility] 01-06-2023 09:27-0400 Diastolic blood pressure 78 mm[Hg] Dallas Morrison DO Work Phone: [facility] 01-06-2023 09:27-0400 Heart rate 88 /min Dallas Morrison DO Work Phone: [facility] 01-06-2023 09:27-0400 Respiratory rate 16 /min Dallas Morrison DO Work Phone: [facility] 01-06-2023 09:27-0400 SaO2% (BldA) [Mass fraction] 97 % Dallas Morrison DO Work Phone: [facility] 01-06-2023 09:27-0400 Systolic blood pressure 132 mm[Hg] Dallas Morrison DO Work Phone: [facility] 03-11-2022 09:23-0400 Body temperature 97 [degF] Dallas Morrison DO Work Phone: [facility] 03-11-2022 09:23-0400 Body weight 68.95 kg Dallas Morrison DO Work Phone: [facility] 03-11-2022 09:23-0400 Diastolic blood pressure 80 mm[Hg] Dallas Morrison DO Work Phone: [facility] 03-11-2022 09:23-0400 Heart rate 80 /min Dallas Morrison DO Work Phone: [facility] 03-11-2022 09:23-0400 Respiratory rate 16 /min Dallas Morrison DO Work Phone: [facility] 03-11-2022 09:23-0400 Systolic blood pressure 120 mm[Hg] Dallas Morrison DO Work Phone: [facility] 12-17-2021 09:18-0400 Body temperature 97.2 [degF] Dallas Morrison DO Work Phone: [facility] 12-17-2021 09:18-0400 Body weight 68.04 kg Dallas Morrison DO Work Phone: [facility] 12-17-2021 09:18-0400 Diastolic blood pressure 80 mm[Hg] Dallas Morrison DO Work Phone: [facility] 12-17-2021 09:18-0400 Heart rate 76 /min Dallas Morrison DO Work Phone: [facility] 12-17-2021 09:18-0400 Respiratory rate 16 /min Dallas Morrison DO Work Phone: [facility] 12-17-2021 09:18-0400 Systolic blood pressure 130 mm[Hg] Dallas Morrison DO Work Phone: [facility] Encounters Encounter Date Encounter Type Care Provider Facility Start: 02-17-2024 End: 02-17-2024 Patient encounter procedure Chepe Hoang APRN.NEUROLOGY SPECIALIST Work Phone: [facility] [place] Comment on above: Mixed hyperlipidemia (Primary Dx); Encounter for screening examination for other mental health and behavioral disorders; Hypertension, essential; Impaired fasting glucose; Subclinical hypothyroidism; Vitamin D deficiency; Encounter for vitamin deficiency screening Start: 02-17-2024 End: 02-17-2024 ambulatory D[place]AS BEGUMRISON Facility:[facility] Start: 12-14-2023 Orders Only Raven mcintosh PA-C Work Phone: Appointment Center Comment on above: Pain (Primary Dx) Start: 11-28-2023 End: 11-28-2023 ambulatory CHEPE HOANG Facility:[facility] Start: 11-28-2023 End: 11-28-2023 Subsequent hospital visit by physician Xr [facility] [place] Work Phone: Radiology Comment on above: Right hand pain [M79 .641] Start: 11-27-2023 End: 11-27-2023 ambulatory [place] Morrissey [place] Facility:[facility] Start: 11-27-2023 End: 11-27-2023 Patient encounter procedure Chepe Hoang APRN.NEUROLOGY SPECIALIST Work Phone: [facility] Comment on above: Right hand pain (Sobia suzanne Dx); Trigger thumb of right hand; Right hand weakness; Reactive depression; Hypertension, essential; Migraine without aura and without status migrainosus, not intractable; Mixed hyperlipidemia Start: 10-07-2023 Documentation procedure Mammog bell Coordinator [facility] Department Start: 10-07-2023 Letter encounter Mammography Coordinator [facility] Start: 10-07-2023 Telephone encounter [facility] Start: 10-07-2023 End: 10-07-2023 ambulatory [place] Morrissey [place] Facility:[facility] Start: 10-07-2023 End: 10-07-2023 Subsequent hospital visit by physician Screen Mammo [facility] Comment on above: Encounter for screen ing mammogram for malignant neoplasm of breast [Z12.31] Start: 06-18-2023 Refill Jaquelinchristine Ernandez CHRISTIAN.NEUROLOGY SPECIALIST Work Phone: [facility] Comment on above: Refill Request Start: 01-07-2023 Refill Dallas Blankenship son DO Work Phone: [facility] [place] Start: 01-06-2023 End: 01-06-2023 Patient encounter procedure Dallas Morrison DO Work Phone: [facility] Comment on above: Subclinical hypothyr oidism (Primary Dx); Hypertension, essential; Mixed hyperlipidemia; Migraine without aura and without status migrainosus, not intractable; Fatigue, unspecified type; Impaired fasting glucose; Vitamin D deficiency; Iron deficiency; Encounter for screening mammogram for malignant neoplasm of breast; Reactive depression Start: 11-10-2022 Refill Dallas polo DO Work Phone: [facility] [place] Comment on above: Refill Request Start: 11-04-2022 Refill Dallas polo DO Work Phone: [facility] [place] Comment on above: Refill Request Start: 06-15-2022 ambulatory Dallas polo DO Work Phone: [facility] [place] Comment on above: new insurance Start: 04-04-2022 Documentation procedure Mammog bell Coordinator [facility] Start: 04-04-2022 Letter encounter Mammography Coordinator [facility] Department Start: 04-03-2022 End: 04-03-2022 Subsequent hospital visit by physician Screen Mammo [facility] Comment on above: Encounter for screen ing mammogram for malignant neoplasm of breast [Z12.31] Start: 03-26-2022 Telephone encounter Dallas marks DO Work Phone: [facility] [place] Comment on above: Patient Update Start: 03-17-2022 ambulatory Dallas polo DO Work Phone: [facility] [place] Comment on above: Blood test on 03/11 Start: 03-17-2022 Telephone encounter Dallas marks DO Work Phone: [facility] [place] Comment on above: Patient Question Start: 03-11-2022 ambulatory Dallas polo DO Work Phone: [facility] [place] Comment on above: Tests from 03/11 Start: 03-11-2022 Telephone encounter Dallas marks DO Work Phone: [facility] [place] Comment on above: Opened In Error Start: 03-11-2022 End: 03-11-2022 Patient encounter procedure Dallas Morrison DO Work Phone: [facility] [place] Comment on above: Reactive depression (Primary Dx); Acute cystitis without hematuria; Encounter for screening mammogram for malignant neoplasm of breast; Travel advice encounter; Hair loss; Fatigue, unspecified type; Dermatitis; Gastroesophageal reflux disease with esophagitis without hemorrhage; Throat clearing; Mixed hyperlipidemia Start: 02-25-2022 Telephone encounter Dallas Stapleton arrison DO Work Phone: [facility] [place] Comment on above: order to lab for uri ne specimen Start: 02-07-2022 ambulatory Dallas polo DO Work Phone: [facility] [place] Comment on above: 6 weeks and no impro vement Start: 02-05-2022 Refill Jaquelin junior NAIL STICKER.NEUROLOGY SPECIALIST Work Phone: [facility] [place] Comment on above: Refill Request Start: 12-18-2021 Telephone encounter Dallas mimsadela DO Work Phone: [facility] [place] Comment on above: Insurance Authorizat ion Start: 12-17-2021 End: 12-17-2021 Patient encounter procedure Dallas Morrison DO Work Phone: [facility] [place] Comment on above: Reactive depression (Primary Dx); Mixed hyperlipidemia; Hypertension, essential; Gastroesophageal reflux disease with esophagitis without hemorrhage; Hoarseness; Throat clearing; Abnormal urine odor Start: 10-22-2021 Chart abstracting Dallas dawkins DO Work Phone: [facility] [place] Start: 10-20-2021 Refill Dallas polo DO Work Phone: [facility] [place] Comment on above: Refill Request Start: 09-17-2021 End: 09-17-2021 Subsequent hospital visit by physician Bone Density [facility] Work Phone: Radiology Comment on above: Post-menopausal [Z78 .[id number]] Start: 08-12-2021 ambulatory Andreina ([facility]) Diya [facility] [place] Comment on above: Population Health Na vigation Outreach ([employer] Care Gaps) Start: 07-16-2018 End: 07-16-2018 Emergency department patient visit BO CORDERO Facility:[facility] Start: 11-02-2013 Patient encounter status Andreina Acosta [facility] Work Phone: Procedures Date Procedure Procedure Detail Performing Clinician Start: 11-28-2023 Radex hand minimum 3 views Chepe Hoang NAIL STICKER.NEUROLOGY SPECIALIST Work Phone: Start: 10-07-2023 Screening mammograph y bi 2-view breast inc cad Dallas Morrison DO Work Phone: Start: 01-07-2023 Lipid 1996 panel - S ajye or Plasma Screen Wstr Start: 04-03-2022 End: 04-03-2022 Mammography Dallas Morrison DO Work Phone: Start: 09-17-2021 Dxa bone density thiago dy 1/> sites axial skel Dallas Morrison DO Work Phone: Start: 03-28-2021 Mammography Andreina Glaser opart Start: 03-03-2021 Adult depression scr eening assessment Andreina Keane Start: 09-19-2014 Colonoscopy Andreina bustillos Plan of Treatment Date Care Activity Detail Author Start: 01-08-2028 Lipid 1996 panel - S jaye or Plasma Lipid Screening [facility] Start: 01-08-2028 Lipid panel Lipid Screening [facility] Start: 01-08-2028 LIPID SCREEN LIPID SCREEN [facility] Start: 02-25-2027 LIPID SCREEN LIPID SCREEN [facility] Start: 03-02-2026 LIPID SCREEN LIPID SCREEN [facility] Start: 01-07-2026 DIABETES SCREEN DIABETES SCREEN [facility] Start: 01-07-2026 Diabetes Screening Diabetes Screenin g [facility] Start: 02-25-2025 DIABETES SCREEN DIABETES SCREEN [facility] Start: 02-16-2025 Annual PCP Team Relays [employer] eliseo Disease Visit Annual PCP Team Chronic Disease Visit [facility] Start: 02-16-2025 Anxiety Screening Anxiety Screening [facility] Start: 02-16-2025 BP Controlled (<130/80) BP Controlle d (<130/80) [facility] Start: 02-16-2025 Covid-19 Vaccine ( season) Covid-19 Vaccine () [facility] Comment on above: Postponed from 01/16 (Declined at this time) Start: 02-16-2025 Urine microalbumin profile DTa P,Tdap,Td Vaccine (2 - Td or Tdap) [facility] Comment on above: Postponed from 06/07 (Declined at this time) Start: 11-26-2024 Annual PCP Team Relays [employer] eliseo Disease Visit Annual PCP Team Chronic Disease Visit [facility] Start: 11-14-2024 Influenza vaccination Influenza Vacc ine (#1) [facility] Comment on above: Postponed from 01/16 (Declined at this time) Start: 10-06-2024 Screening for malign ant neoplasm of breast Mammogram Screening [facility] Start: 2024 RSV Vaccine (1 - 1-d ose 75+ series) RSV Vaccine (1 - 1-dose 75+ series) [facility] Start: 09-20-2024 End: 09-20-2024 Patient encounter procedure 09/20/2024 12:00 PM EDT Office Visit [facility] [place] [address] [place], [place] [id number] Dallas Morrison DO [address] [facility] [place], [place] [address] 6 MONTH FOLLOW UP [facility] [place] Comment on above: 6 MONTH FOLLOW UP Start: 09-19-2024 Colonoscopy COLONOSCOPY [facility] Start: 09-19-2024 COLORECTAL CANCER SCREENING COLORECTAL CANCER SCREENING [facility] Start: 09-19-2024 Screening for malign ant neoplasm of colon [facility] Start: 03-02-2024 DIABETES SCREEN DIABETES SCREEN [facility] Start: 02-17-2024 End: 05-18-2024 25-hydroxyvitamin D3 [Mass/volume] in Serum or Plasma VITAMIN D 25 HYDROXY Lab Routine Vitamin D deficiency Expected: 02/17/2024, Expires: 05/18/2024 [facility] Comment on above: Expected: 02/17/2024 , Expires: 05/18/2024 Start: 02-17-2024 End: 05-18-2024 CBC panel - Blood by Automated count COMPLETE BLOOD COUNT Lab Routine Hypertension, essential Expected: 02/17/2024, Expires: 05/18/2024 [facility] Work Phone: Comment on above: Expected: 02/17/2024 , Expires: 05/18/2024 Start: 02-17-2024 End: 05-18-2024 Cobalamin (Vitamin B12) [Mass/volume] in Serum or Plasma VITAMIN B12 Lab Routine Encounter for vitamin deficiency screening Expected: 02/17/2024, Expires: 05/18/2024 [facility] Comment on above: Expected: 02/17/2024 , Expires: 05/18/2024 Start: 02-17-2024 End: 05-18-2024 Comprehensive metabolic 2000 panel - Serum or Plasma COMPREHENSIVE METABOLIC PANEL Lab Routine Hypertension, essential Impaired fasting glucose Expected: 02/17/2024, Expires: 05/18/2024 [facility] Comment on above: Expected: 02/17/2024 , Expires: 05/18/2024 Start: 02-17-2024 End: 05-18-2024 Hemoglobin A1c in Blood HEMOGLOBIN A1C Lab Routine Impaired fasting glucose Expected: 02/17/2024, Expires: 05/18/2024 [facility] Comment on above: Expected: 02/17/2024 , Expires: 05/18/2024 Start: 02-17-2024 End: 05-18-2024 Lipid 1996 panel - Serum or Plasma LIPID PANEL BASIC Lab Routine Mixed hyperlipidemia Expected: 02/17/2024, Expires: 05/18/2024 [facility] Comment on above: Expected: 02/17/2024 , Expires: 05/18/2024 Start: 02-17-2024 End: 05-18-2024 Thyrotropin [Units/volume] in Serum or Plasma THYROID STIMULATING HORMONE Lab Routine Subclinical hypothyroidism Expected: 02/17/2024, Expires: 05/18/2024 [facility] Comment on above: Expected: 02/17/2024 , Expires: 05/18/2024 Start: 02-17-2024 End: 05-18-2024 Thyroxine (T4) free [Mass/volume] in Serum or Plasma T4 FREE/FREE THYROXINE Lab Routine Subclinical hypothyroidism Expected: 02/17/2024, Expires: 05/18/2024 [facility] Comment on above: Expected: 02/17/2024 , Expires: 05/18/2024 Start: 02-17-2024 End: 05-18-2024 Triiodothyronine (T3) [Mass/volume] in Serum or Plasma T3 Lab Routine Subclinical hypothyroidism Expected: 02/17/2024, Expires: 05/18/2024 [facility] Comment on above: Expected: 02/17/2024 , Expires: 05/18/2024 Start: 02-09-2024 End: 02-09-2024 Patient encounter procedure 02/09/2024 11:00 AM EDT Office Visit [facility] [place] [address] [facility] [place] [address] Dallas Morrison DO [address] [place] [address] Physical [facility] [place] Comment on above: Physical Start: 01-17-2024 Covid-19 Vaccine () Covid-19 Vaccine () [facility] Start: 01-17-2024 Influenza vaccination [facility] Start: 01-07-2024 ANNUAL PCP TEAM REMOTE ADVISOR ELISEO DISEASE VISIT ANNUAL PCP TEAM CHRONIC DISEASE VISIT [facility] Start: 01-07-2024 BP CONTROLLED (<130/80) BP CONTROLLE D (<130/80) [facility] Start: 12-17-2023 End: 12-17-2023 Patient encounter procedure 12/17/2023 3:00 PM EDT Office Visit Podiatry [address] [place], [place] [id number] Darell Mak [address] [place] [address] [facility] Comment on above: Right Foot Big Toe Start: 04-10-2023 End: 06-10-2023 Thyrotropin [Units/volume] in Serum or Plasma TSH BLD Lab Routine Subclinical hypothyroidism Expected: 04/10/2023, Expires: 06/10/2023 [facility] Work Phone: Comment on above: Expected: 04/10/2023 , Expires: 06/10/2023 Start: 04-10-2023 End: 06-10-2023 Thyroxine (T4) free [Mass/volume] in Serum or Plasma T4 FREE/FREE THYROX Lab Routine Subclinical hypothyroidism Expected: 04/10/2023, Expires: 06/10/2023 [facility] Work Phone: Comment on above: Expected: 04/10/2023 , Expires: 06/10/2023 Start: 04-10-2023 End: 06-10-2023 Triiodothyronine (T3) Free [Mass/volume] in Serum or Plasma T3 FREE BLD Lab Routine Subclinical hypothyroidism Expected: 04/10/2023, Expires: 06/10/2023 [facility] Work Phone: Comment on above: Expected: 04/10/2023 , Expires: 06/10/2023 Start: 04-03-2023 Mammography [facility] Start: 04-03-2023 Screening for malign ant neoplasm of breast Mammogram Screening [facility] Start: 03-11-2023 ANNUAL PCP TEAM REMOTE ADVISOR ELISEO DISEASE VISIT ANNUAL PCP TEAM CHRONIC DISEASE VISIT [facility] Start: 01-16-2023 Covid-19 Vaccine () Covid-19 Vaccine () [facility] Start: 01-16-2023 Influenza vaccination [facility] Start: 01-06-2023 End: 03-08-2023 25-hydroxyvitamin D3 [Mass/volume] in Serum or Plasma VITAMIN D 25 HYDROXY Lab Routine Vitamin D deficiency Expected: 01/06/2023, Expires: 03/08/2023 [facility] Work Phone: Comment on above: Expected: 01/06/2023 , Expires: 03/08/2023 Start: 01-06-2023 End: 03-08-2023 CBC W Auto Differential panel - Blood CBC + DIFF Lab Routine Hypertension, essential Subclinical hypothyroidism Expected: 01/06/2023, Expires: 03/08/2023 [facility] Work Phone: Comment on above: Expected: 01/06/2023 , Expires: 03/08/2023 Start: 01-06-2023 End: 03-08-2023 Cobalamin (Vitamin B12) [Mass/volume] in Serum or Plasma VITAMIN B12 BLOOD Lab Routine Fatigue, unspecified type Expected: 01/06/2023, Expires: 03/08/2023 [facility] Work Phone: Comment on above: Expected: 01/06/2023 , Expires: 03/08/2023 Start: 01-06-2023 End: 03-08-2023 Comprehensive metabolic 2000 panel - Serum or Plasma COMP METABOLIC PANEL Lab Routine Hypertension, essential Subclinical hypothyroidism Expected: 01/06/2023, Expires: 03/08/2023 [facility] Work Phone: Comment on above: Expected: 01/06/2023 , Expires: 03/08/2023 Start: 01-06-2023 End: 03-08-2023 Hemoglobin A1c in Blood HGB A1C Lab Routine Fatigue, unspecified type Impaired fasting glucose Expected: 01/06/2023, Expires: 03/08/2023 [facility] Work Phone: Comment on above: Expected: 01/06/2023 , Expires: 03/08/2023 Start: 01-06-2023 End: 03-08-2023 Iron and Iron binding capacity panel - Serum or Plasma IRON + TIBC Lab Routine Iron deficiency Expected: 01/06/2023, Expires: 03/08/2023 [facility] Work Phone: Comment on above: Expected: 01/06/2023 , Expires: 03/08/2023 Start: 01-06-2023 End: 03-08-2023 Lipid 1996 panel - Serum or Plasma LIPID PANEL BASIC Lab Routine Mixed hyperlipidemia Expected: 01/06/2023, Expires: 03/08/2023 [facility] Work Phone: Comment on above: Expected: 01/06/2023 , Expires: 03/08/2023 Start: 01-06-2023 End: 03-08-2023 Thyrotropin [Units/volume] in Serum or Plasma TSH BLD Lab Routine Subclinical hypothyroidism Expected: 01/06/2023, Expires: 03/08/2023 [facility] Work Phone: Comment on above: Expected: 01/06/2023 , Expires: 03/08/2023 Start: 01-06-2023 End: 03-08-2023 Thyroxine (T4) free [Mass/volume] in Serum or Plasma T4 FREE/FREE THYROX Lab Routine Subclinical hypothyroidism Expected: 01/06/2023, Expires: 03/08/2023 [facility] Work Phone: Comment on above: Expected: 01/06/2023 , Expires: 03/08/2023 Start: 01-06-2023 End: 03-08-2023 Triiodothyronine (T3) Free [Mass/volume] in Serum or Plasma T3 FREE BLD Lab Routine Subclinical hypothyroidism Expected: 01/06/2023, Expires: 03/08/2023 [facility] Work Phone: Comment on above: Expected: 01/06/2023 , Expires: 03/08/2023 Start: 12-17-2022 ANNUAL PCP TEAM REMOTE ADVISOR ELISEO DISEASE VISIT ANNUAL PCP TEAM CHRONIC DISEASE VISIT [facility] Start: 12-17-2022 BP CONTROLLED (<130/80) BP CONTROLLE D (<130/80) [facility] Start: 11-14-2022 Influenza vaccination INFLUENZA (#1) [facility] Comment on above: Postponed from 01/16 (Declined at this time) Start: 06-05-2022 ANNUAL PCP TEAM REMOTE ADVISOR ELISEO DISEASE VISIT ANNUAL PCP TEAM CHRONIC DISEASE VISIT [facility] Start: 03-28-2022 Mammography MAMMOGRAM [facility] Start: 03-19-2022 End: 05-19-2022 Thyrotropin [Units/volume] in Serum or Plasma TSH BLD Lab Routine Borderline abnormal thyroid function test Expected: 03/19/2022, Expires: 05/19/2022 [facility] Work Phone: Comment on above: Expected: 03/19/2022 , Expires: 05/19/2022 Start: 03-19-2022 End: 05-19-2022 Thyroxine (T4) free [Mass/volume] in Serum or Plasma T4 FREE/FREE THYROX Lab Routine Borderline abnormal thyroid function test Expected: 03/19/2022, Expires: 05/19/2022 [facility] Work Phone: Comment on above: Expected: 03/19/2022 , Expires: 05/19/2022 Start: 03-19-2022 End: 05-19-2022 Triiodothyronine (T3) Free [Mass/volume] in Serum or Plasma T3 FREE BLD Lab Routine Borderline abnormal thyroid function test Expected: 03/19/2022, Expires: 05/19/2022 [facility] Work Phone: Comment on above: Expected: 03/19/2022 , Expires: 05/19/2022 Start: 03-11-2022 End: 05-11-2022 25-hydroxyvitamin D3 [Mass/volume] in Serum or Plasma [facility] Work Phone: Comment on above: Expected: 03/11/2022 , Expires: 05/11/2022 Start: 03-11-2022 End: 05-11-2022 Cobalamin (Vitamin B12) [Mass/volume] in Serum or Plasma [facility] Work Phone: Comment on above: Expected: 03/11/2022 , Expires: 05/11/2022 Start: 03-11-2022 End: 05-11-2022 Iron and Iron binding capacity panel - Serum or Plasma [facility] Work Phone: Comment on above: Expected: 03/11/2022 , Expires: 05/11/2022 Start: 03-11-2022 End: 05-11-2022 RBC FOLATE [facility] Work Phone: Comment on above: Expected: 03/11/2022 , Expires: 05/11/2022 Start: 03-11-2022 End: 05-11-2022 Thyrotropin [Units/volume] in Serum or Plasma [facility] Work Phone: Comment on above: Expected: 03/11/2022 , Expires: 05/11/2022 Start: 03-11-2022 End: 05-11-2022 Thyroxine (T4) free [Mass/volume] in Serum or Plasma [facility] Work Phone: Comment on above: Expected: 03/11/2022 , Expires: 05/11/2022 Start: 03-11-2022 End: 05-11-2022 Triiodothyronine (T3) Free [Mass/volume] in Serum or Plasma [facility] Work Phone: Comment on above: Expected: 03/11/2022 , Expires: 05/11/2022 Start: 03-05-2022 PNEUMOCOCCAL: 65+ (2 - PPSV23 if available, else PCV20) PNEUMOCOCCAL: 65+ (2 - PPSV23 if available, else PCV20) [facility] Comment on above: Postponed from 02/06 (Declined at this time) Start: 03-05-2022 PNEUMOCOCCAL: 65+ (2 - PPSV23 or PCV20) PNEUMOCOCCAL: 65+ (2 - PPSV23 or PCV20) [facility] Comment on above: Postponed from 02/06 (Declined at this time) Start: 03-05-2022 PNEUMOVAX AGE 65 AND OVER WITH 5YR LOOKBACK (#1) PNEUMOVAX AGE 65 AND OVER WITH 5YR LOOKBACK (#1) [facility] Comment on above: Postponed from 10/01 (Declined at this time) Start: 03-03-2022 Adult depression scr eening assessment DEPRESSION SCREENING [facility] Start: 02-25-2022 End: 04-27-2022 Bacteria identified in Urine by Culture URINE CULTURE Microbiology Routine Dysuria Expected: 02/25/2022, Expires: 04/27/2022 [facility] Work Phone: Comment on above: Expected: 02/25/2022 , Expires: 04/27/2022 Start: 02-25-2022 End: 04-27-2022 Urinalysis complete panel - Urine URINALYSIS, WITH MICROSCOPIC Lab Routine Dysuria Expected: 02/25/2022, Expires: 04/27/2022 [facility] Work Phone: Comment on above: Expected: 02/25/2022 , Expires: 04/27/2022 Start: 01-16-2022 Influenza vaccination INFLUENZA (#1) [facility] Start: 12-17-2021 SHINGRIX VACCINE (2 of 2) TORRES GRIX VACCINE (2 of 2) [facility] Start: 05-18-2021 ADVANCE DIRECTIVE DISCUSSION ADVANCE DIRECTIVE DISCUSSION [facility] Start: 12-25-2020 COVID-19 VACCINE (3 - Booster for Moderna series) COVID-19 VACCINE (3 - Booster for Moderna series) [facility] Start: 09-19-2020 COVID-19 VACCINE (3 - Booster for Moderna series) COVID-19 VACCINE (3 - Booster for Moderna series) [facility] Start: 09-19-2020 COVID-19 VACCINE (3 - Moderna series) COVID-19 VACCINE (3 - Moderna series) [facility] Start: 02-06-2018 PNEUMOCOCCAL: 65+ (2 - PPSV23 if available, else PCV20) PNEUMOCOCCAL: 65+ (2 - PPSV23 if available, else PCV20) [facility] Start: 02-06-2018 PNEUMOCOCCAL: 65+ (2 - PPSV23 or PCV20) PNEUMOCOCCAL: 65+ (2 - PPSV23 or PCV20) [facility] Start: 06-07-2017 Urine microalbumin profile [facility] Start: 2009 RSV Vaccine (1 - 1-d ose 60+ series) RSV Vaccine (1 - 1-dose 60+ series) [facility] Start: 10-02-1999 SHINGRIX VACCINE (1 of 2) TORRES GRIX VACCINE (1 of 2) [facility] Start: 1994 COLOGUARD (FIT-DNA) COLOGUARD (FIT-D NA) [facility] Start: [address] COLONOGRAPHY [facility] Start: 1994 FECAL OCCULT BLOOD FECAL OCCULT BLOO D [facility] Start: 1994 Screening for malign ant neoplasm of colon [facility] Start: 1994 SIGMOIDOSCOPY SIGMOIDOSCOPY [facility] Start: 10-02-1967 Anxiety Screening Anxiety Screening [facility] Start: 10-02-1967 BP CONTROLLED (<130/80) BP CONTROLLE D (<130/80) [facility] End: 03-11-2023 Bacteria identified in Urine by Culture URINE CULTURE Microbiology Routine Acute cystitis without hematuria Every other week for 12 Occurrences starting 03/11/2022 until 03/11/2023 [facility] Work Phone: Comment on above: Every other week for 12 Occurrences starting 03/11/2022 until 03/11/2023 End: 02-05-2024 DEYSI SCREENING DEYSI SCREENING Radiology Routine Encounter for screening mammogram for malignant neoplasm of breast 1 Occurrences starting 01/06/2023 until 02/05/2024 [facility] Work Phone: Comment on above: 1 Occurrences starti ng 01/06/2023 until 02/05/2024 End: 04-10-2023 Screening mammography bi 2-view breast inc cad DEYSI SCREENING Radiology Routine Encounter for screening mammogram for malignant neoplasm of breast 1 Occurrences starting 03/11/2022 until 04/10/2023 [facility] Work Phone: Comment on above: 1 Occurrences starti ng 03/11/2022 until 04/10/2023 UA DIP, URINE (POC) UA DIP, URIN E (POC) Lab Routine Ordered: 12/17/2021 [facility] Work Phone: Comment on above: Ordered: 12/17/2021 End: 03-11-2023 Urinalysis complete panel - Urine URINALYSIS, WITH MICROSCOPIC Lab Routine Acute cystitis without hematuria Once per month for 12 Occurrences starting 03/11/2022 until 03/11/2023 [facility] Work Phone: Comment on above: Once per month for 1 2 Occurrences starting 03/11/2022 until 03/11/2023 End: 01-12-2025 XR Hand - left PA and Lateral and Oblique XR HAND GENERAL 3V PA/LAT/OBL LEFT Radiology Routine Pain 1 Occurrences starting 12/14/2023 until 01/12/2025 [facility] Work Phone: Comment on above: 1 Occurrences starti ng 12/14/2023 until 01/12/2025 End: 12-26-2024 XR Hand - right PA and Lateral and Oblique XR HAND GENERAL 3V PA/LAT/OBL RIGHT Radiology Routine Right hand pain Right hand weakness 1 Occurrences starting 11/27/2023 until 12/26/2024 [facility] Work Phone: Comment on above: 1 Occurrences starti ng 11/27/2023 until 12/26/2024 [facility] Immunizations Immunization Date Immunization Notes Care Provider Marvin mccormick 03-03-2023 pneumococcal conjuga te (PCV20) vaccine, 20 valent (PREVNAR 20) Jaquelin Ernandez NAIL STICKER.NEUROLOGY SPECIALIST Work Phone: [facility] 12-27-2021 zoster vaccine recombinant Jaquelin Epps NAIL STICKER.NEUROLOGY SPECIALIST Work Phone: [facility] 10-22-2021 zoster vaccine recombinant Dallas Morrison DO Work Phone: [facility] Work Phone: 03-05-2021 influenza, high-dose , quadrivalent vaccine (FLUZONE HIGH DOSE QUADRIVALENT) [facility] Work Phone: 03-05-2021 influenza virus vaccine, unspecified formulation Screen Wstr [facility] 07-25-2020 COVID-19 vaccine, fu ll dose (MODERNA) [facility] Work Phone: 06-26-2020 COVID-19 vaccine, fu ll dose (MODERNA) [facility] Work Phone: 03-06-2020 influenza, high-dose , quadrivalent vaccine (FLUZONE HIGH DOSE QUADRIVALENT) [facility] 03-13-2019 influenza, high dose seasonal, preservative-free [facility] 03-18-2018 influenza, high dose seasonal, preservative-free [facility] 02-06-2017 influenza, high dose seasonal, preservative-free [facility] 02-06-2017 pneumococcal conjuga te vaccine, 13 valent [facility] 06-07-2007 tetanus toxoid, redu mina diphtheria toxoid, and acellular pertussis vaccine, adsorbed [facility] Work Phone: Payers Date Payer Category Payer Medicare [id number] 2021 Medicare [employer] MEDICARE A ETNA MEDICARE PPO [id number] 2021-Present [phone] [address] [place] [address] PPO [id number] 2021 Medicare [id number] Medicare [id number] Unknown [id number] Social History Date Type Detail Facility Start: 09-04-2017 End: 02-17-2024 Tobacco smoking status NHIS Ex-smoker [facility] End: 05-18-1984 History of tobacco use Current smoker [facility] End: 05-18-1984 History of tobacco use Cigarette Smoker [facility] Start: 06-05-2021 End: 02-17-2024 Alcohol intake Current drinker of alcohol (finding) [facility] Start: 05-01-2021 History SDOH Alcohol Frequency 3 [facility] Start: 05-01-2021 History SDOH Alcohol Std Drinks 1 [facility] Start: 05-01-2021 History SDOH Social Connections Phone 2 [facility] Start: 05-01-2021 History SDOH Physica l Activity DPW 6 [facility] Start: 05-01-2021 History SDOH Physica l Activity MPS 4 [facility] Start: 05-01-2021 History SDOH Financial 5 [facility] Start: 02-03-2020 Education 18 [facility] Start: 1950 Sex Assigned At Female [facility] Start: 08-02-2021 End: 04-03-2022 Exposure to SARS-CoV-2 (event) Not sure [facility] Start: 09-04-2017 End: 02-17-2024 Tobacco use and exposure Smokeless tobacco non-user [facility] Start: 02-27-2022 Tobacco Comment quit in [facility] Start: 01-03-2023 End: 02-10-2024 [facility] Start: 01-03-2023 End: 02-10-2024 Social connection and isolation panel [facility] Do you belong to any clubs or organizations such as protestant groups, unions, fraternal or athletic groups, or school groups? Yes [facility] Are you now , , , , never or living with a partner? [facility] How often to you hav e a drink containing alcohol? 2-4 times a month [facility] How many standard dr inks containing alcohol do you have on a typical day? 1 or 2 [facility] How often do you hav e 6 or more drinks on 1 occasion? Never [facility] How hard is it for y ou to pay for the very basics like food, housing, medical care, and heating Not hard at all [facility] Do you feel stress - tense, restless, nervous, or anxious, or unable to sleep at night because your mind is troubled all the time - these days [OSQ] Only a little [facility] (I/We) worried wheth er (my/our) food would run out before (I/we) got money to buy more. Never true [facility] In the past 12 month s, was there a time when you were not able to pay the mortgage or rent on time? No [facility] Start: 08-20-2018 Gender identity Identifies as female gender (finding) [facility] Do you feel stress - tense, restless, nervous, or anxious, or unable to sleep at night because your mind is troubled all the time - these days [OSQ] To some extent [facility] How often to you hav e a drink containing alcohol? 2-3 time sa week [facility] Do you feel stress - tense, restless, nervous, or anxious, or unable to sleep at night because your mind is troubled all the time - these days [OSQ] Not at all [facility] Clinical Notes 06-07-2007 to 02-17-2024 Chepe Hoang APRN.NEUROLOGY SPECIALIST - 02/17/2024 2:32 PM Grant Thapa, RT(R) - 11/28/2023 8:50 AM Chepe Balbuena APRN.NEUROLOGY SPECIALIST - 11/27/2023 7:50 AM Dallas Evangelista DO - 01/06/2023 10:54 AM EDT Note Date & Type Note Facility 02-17-2024 Note HNO ID: [id number] Author: CHEPE HOANG APRN.CNP Service: ? Author Type: Nurse Practitioner Type: Progress Notes Filed: 02/17/2024 14:59 Note Text: Raven Jj is a 73 year old female here for a Medicare wellness visit. Medicare Health Risk Assessment General Health Exercise: Minutes/Day 30 min Exercise: Days/Week 4 days Alcohol: Daily Use 2-3 times a week Alcohol: Drinks/Day 1 or 2 Alcohol: 6 or more drinks Never Feel off balance Yes Concerns: Teeth/Dentures No Concerns: Sexual function No Troubled by feelings None of the above Frequency: Eating healthy diet Nearly every day ADLs requiring help None of the above Safety precautions in home/vehicle Yes Smoke, vape, chews tobacco No Difficulty hearing No Difficulty seeing Yes Current Providers Specialists: I have reviewed specialist-related care of the patient in the medical record. Medical/Family history review Reviewed and updated problem list, medical/surgical/family/social history, medications, and allergies. Opioid use review Opioid Medications (last 90 days) No data to display Anxiety/Depression screening PHQ-9 Score: 2 (Minimal Depression) Recommendation: no further intervention at this time Cognitive screening Mini Cog Score: 3 Cognitive screening reviewed and No further action needed (score 3-5). Functional Observation Was the patient's Timed Up AND Go test unsteady or >= 12 seconds? No Advance Care Planning Surrogate decision maker and/or advance care plan documented Jeo Sweat Measurements BP 118/78 (BP Site: Left Arm, BP Position: Sitting, BP Cuff Size: Regular Adult) Pulse 86 Resp 16 Ht 162 cm (5' 3.78 ) Wt 69.1 kg (152 lb 5.4 oz) SpO2 96% BMI 26.33 kg/m? Vision Screening: Follows with optometry/ophthalmology Assessment/Plan Medicare annual wellness visit, subsequent (Z00.00) - Counseled on healthy diet and regular exercise - Fall avoidance information provided - Personalized prevention plan provided;tatianna Hoang APRN.NEUROLOGY SPECIALIST [facility] 02-17-2024 History of Present illness Narrative Images from the original note were not included. Raven Jj is a 73 year old female here for a Medicare wellness visit. Medicare Health Risk Assessment General Health Exercise: Minutes/Day 30 min Exercise: Days/Week 4 days Alcohol: Daily Use 2-3 times a week Alcohol: Drinks/Day 1 or 2 Alcohol: 6 or more drinks Never Feel off balance Yes Concerns: Teeth/Dentures No Concerns: Sexual function No Troubled by feelings None of the above Frequency: Eating healthy diet Nearly every day ADLs requiring help None of the above Safety precautions in home/vehicle Yes Smoke, vape, chews tobacco No Difficulty hearing No Difficulty seeing Yes Current Providers Specialists: I have reviewed specialist-related care of the patient in the medical record. Medical/Family history review Reviewed and updated problem list, medical/surgical/family/social history, medications, and allergies. Opioid use review Opioid Medications (last 90 days) No data to display Anxiety/Depression screening PHQ-9 Score: 2 (Minimal Depression) Recommendation: no further intervention at this time Cognitive screening Mini Cog Score: 3 Cognitive screening reviewed and No further action needed (score 3-5). Functional Observation Was the patient's Timed Up & Go test unsteady or >= 12 seconds? No Advance Care Planning Surrogate decision maker and/or advance care plan documented Joe Sweat Measurements BP 118/78 (BP Site: Left Arm, BP Position: Sitting, BP Cuff Size: Regular Adult) Pulse 86 Resp 16 Ht 162 cm (5' 3.78 ) Wt 69.1 kg (152 lb 5.4 oz) SpO2 96% BMI 26.33 kg/m Vision Screening: Follows with optometry/ophthalmology Assessment/Plan Medicare annual wellness visit, subsequent (Z00.00) - Counseled on healthy diet and regular exercise - Fall avoidance information provided - Personalized prevention plan provided;tatianna Hoang APRN.JAZMÍN documented in this encounter [facility] 11-28-2023 History of Present illness Narrative Radiology Service Progress Note PATIENT NAME: Raven Jj DATE OF SERVICE: November 28, 2023 TIME: 8:40 AM PATIENT IDENTITY VERIFICATION COMPLETED USING TWO (2) IDENTIFIERS: Name and Date of confirmed by patient verbally. FALL SCREENING: Has the patient had 2 falls in the last year or 1 fall with injury or currently using an Ambulatory Assistive Device (Walker, Cane, Wheelchair, Crutches, etc.)? No PATIENT GENDER DATA: Female. status: : No status: NO. PATIENT RELEVANT IMPLANT DATA REVIEWED: Yes PATIENT PRESENTS WITH AN IMPLANTABLE OR ATTACHED PROTECTION AGENT: No RADIOLOGY DEPARTMENT: General X-ray: Exam(s) Completed: Upper Extremity X-Ray(s): Hand, right PERIPHERAL IV DATA: Not applicable SIGNED BY: RT Etka(R) November 28, 2023 8:40 AM documented in this encounter [facility] 11-28-2023 Note HNO ID: [id number] Author: GRANT JJ RT(R) Service: Radiology Author Type: Technologist Type: Progress Notes Filed: 11/28/2023 08:51 Note Text: Radiology Service Progress Note PATIENT NAME: Raven Jj DATE OF SERVICE: November 28, 2023 TIME: 8:40 AM PATIENT IDENTITY VERIFICATION COMPLETED USING TWO (2) IDENTIFIERS: Name and Date of confirmed by patient verbally. FALL SCREENING: Has the patient had 2 falls in the last year or 1 fall with injury or currently using an Ambulatory Assistive Device (Walker, Cane, Wheelchair, Crutches, etc.)? No PATIENT GENDER DATA: Female. status: : No status: NO. PATIENT RELEVANT IMPLANT DATA REVIEWED: Yes PATIENT PRESENTS WITH AN IMPLANTABLE OR ATTACHED PROTECTION AGENT: No RADIOLOGY DEPARTMENT: General X-ray: Exam(s) Completed: Upper Extremity X-Ray(s): Hand, right PERIPHERAL IV DATA: Not applicable SIGNED BY: NICOLA Dash) November 28, 2023 8:40 AM [facility] 11-27-2023 Note HNO ID: [id number] Author: GRANT JJ RT(R) Service: Radiology Author Type: Technologist Type: Progress Notes Filed: 11/27/2023 08:37 Note Text: RADIOLOGY SERVICE PROGRESS NOTE DATE OF SERVICE: November 27, 2023 TIME OF SERVICE: 08:36 EVENT: EXAM/PROCEDURE NOT COMPLETED - Exam rescheduled for patient left without being seen. ADDITIONAL EVENT DETAILS: N/A SIGNATURE: NICOLA Dash) PATIENT NAME: Raven Jj DATE: November 27, 2023 TIME: 8:36 AM PAGER/CONTACT #: [facility] 11-27-2023 Note HNO ID: [id number] Author: CHEPE HOANG APRN.NEUROLOGY SPECIALIST Service: ? Author Type: Nurse Practitioner Type: Progress Notes Filed: 11/27/2023 08:17 Note Text: Chief Complaint Patient presents with: Hand Pain: Right hand x 2 weeks, worse in the morning, numbness, no injury pt aware of. HPI Raven Jj is a 73 year old female who presents here today for Above Complaints.. Right hand pain-2 weeks ago her fingers were numb in the morning. Feels like an aching tooth, is painful specifically in the top of her palm. Cannot grab things, weakness in this hand as well. Thumb is sticking intermittently when bending. Does have hx arthritis, not sure if this would be a cause. Tylenol helps some. Has not used ice. No injury. Past medical history, appointments, medications, allergies reviewed. Previous Medical History PAST MEDICAL HISTORY Diagnosis Date Advance care planning 12/17/2021 Joe Arrhythmia Cardiac murmur 01/16/2014 Diverticulosis of colon (without mention of hemorrhage) Asymptomatic, found on colonoscopy Herpes zoster with other nervous system complications(053.19) Hypercholesteremia Hypertension Migraine Previous Surgical History PAST SURGICAL HISTORY Procedure Laterality Date ARTHROSCOPY KNEE DIAGNOSTIC W/WO SYNOVIAL BX SPX Arthroscopy, right knee COLONOSCOPY 09/19/2014 incomplete d/t very tortuous colon COLONOSCOPY FLX DX W/COLLJ SPEC WHEN PFRMD 06/14/2004 Colonoscopy, screening EGD 02/27/2022 EYE SURGERY HX KNEE DEBRIDEMENT TENDON/MUSCLE, SCOPE Left 06/2018 LASIK 90s LIG/TRNSXJ FLP TUBE ABDL/VAG APPR UNI/BI Tubal ligation PAST SURGICAL HISTORY OF fatty tumor excised below left breast PAST SURGICAL HISTORY OF 03/21/2008 bilateral foot surgery - plantar fascia Family History FAMILY HISTORY Problem Relation Age of Onset Diabetes Mother Heart Mother [place] /cabg x4 Allergies Mother Cancer Mother lymphoma other (hypercholesterolemia) Mother Heart Father [place]-pacmaker Prostate Cancer Father Lipids Father Cancer Father bone Patient Allergies ALLERGIES No Known Allergies Current Medications Current Outpatient Medications on File Prior to Visit Medication Sig levothyroxine (LEVOXYL) 75 mcg tablet Take 1 tablet by mouth once daily. Take on empty stomach. For thyroid. amitriptyline (ELAVIL) 50 mg tablet Take 1 tablet by mouth daily at bedtime. pantoprazole DR (PROTONIX) 40 mg tablet Take 1 tablet by mouth once daily. losartan (COZAAR) 25 mg tablet Take 1 tablet by mouth once daily. rosuvastatin (CRESTOR) 5 mg tablet Take 1 tablet by mouth daily at bedtime. topiramate (TOPAMAX) 25 mg tablet Take 1 tablet by mouth twice daily. sertraline (ZOLOFT) 100 mg tablet Take 1 tablet by mouth once daily. For mood ondansetron orally disintegrating (ZOFRAN ODT) 4 mg disintegrating tablet Take 1 tablet by mouth every 6 hours as needed for nausea/vomiting. triamcinolone acetonide (KENALOG) 0.1 % cream Apply 1 application to affected area twice daily as needed. Apply sparingly to area for rash/itching. No current facility-administered medications on file prior to visit. Social History Social History Tobacco Use Smoking status: Former Types: Cigarettes Quit date: 05/18/1984 Years since quittin.5 Smokeless tobacco: Never Tobacco comments: quit in 1969/ Vaping Use Vaping Use: Never used Substance Use Topics Alcohol use: Yes Comment: occasional Drug use: No Review of Symptoms REVIEW OF SYSTEMS See HPI, otherwise negative EXAM: BP 124/86 (BP Site: Left Arm, BP Position: Sitting, BP Cuff Size: Regular Adult) Pulse 83 Resp 16 Wt 70.6 kg (155 lb 9.6 oz) SpO2 95% BMI 26.70 kg/m? General Appearance: Well appearing, alert, in no acute distress, well-hydrated, well nourished.. Musculoskeletal: mild swelling to fingers of right hand, good cap refill, pain with palpation of upper palm-specifically just under her ring finger, no pain to the top of her hand, unable to make a complete fist. Psychiatric: pleasant, cooperative. Health Maintenance List RSV Vaccine(1 - 1-dose 60+ series) Never done DTaP,Tdap,Td Vaccine(2 - Td or Tdap) due on 06/07/2017 Covid-19 Vaccine(3 - 2022- season) due on 01/16/2023 Annual PCP Team Chronic Disease Visit due on 01/07/2024 BP Controlled (<130/80) due on 01/07/2024 Influenza Vaccine(1) due on 01/17/2024 Colorectal Cancer Screening due on 09/19/2024 Mammogram Screening due on 10/06/2024 Diabetes Screening due on 01/07/2026 Lipid Screening due on 01/08/2028 Bone Density Screening Completed Hepatitis C Screening Completed Shingrix Vaccine Completed Pneumococcal Vaccine: 65+ Completed Advance Directive Discussion Discontinued Data reviewed Previous records, office notes ASSESSMENT/PLAN: 1. Right hand pain - ICD9: 729.5, ICD10: M79.641 (primary diagnosis) RICE Naproxen bid with meals x14 days - XR HAND GENERAL 3V PA/LAT/OBL RIGHT - (more content not included)... [facility] 11-27-2023 History of Present illness Narrative Chief Complaint Patient presents with: Hand Pain: Right hand x 2 weeks, worse in the morning, numbness, no injury pt aware of. HPI Raven Jj is a 73 year old female who presents here today for Above Complaints.. Right hand pain-2 weeks ago her fingers were numb in the morning. Feels like an aching tooth, is painful specifically in the top of her palm. Cannot grab things, weakness in this hand as well. Thumb is sticking intermittently when bending. Does have hx arthritis, not sure if this would be a cause. Tylenol helps some. Has not used ice. No injury. Past medical history, appointments, medications, allergies reviewed. Previous Medical History PAST MEDICAL HISTORY Diagnosis Date Advance care planning 12/17/2021 Joe Arrhythmia Cardiac murmur 01/16/2014 Diverticulosis of colon (without mention of hemorrhage) Asymptomatic, found on colonoscopy Herpes zoster with other nervous system complications(053.19) Hypercholesteremia Hypertension Migraine Previous Surgical History PAST SURGICAL HISTORY Procedure Laterality Date ARTHROSCOPY KNEE DIAGNOSTIC W/WO SYNOVIAL BX SPX Arthroscopy, right knee COLONOSCOPY 09/19/2014 incomplete d/t very tortuous colon COLONOSCOPY FLX DX W/COLLJ SPEC WHEN PFRMD 06/14/2004 Colonoscopy, screening EGD 02/27/2022 EYE SURGERY HX KNEE DEBRIDEMENT TENDON/MUSCLE, SCOPE Left 06/2018 LASIK 90s LIG/TRNSXJ FLP TUBE ABDL/VAG APPR UNI/BI Tubal ligation PAST SURGICAL HISTORY OF fatty tumor excised below left breast PAST SURGICAL HISTORY OF 03/21/2008 bilateral foot surgery - plantar fascia Family History FAMILY HISTORY Problem Relation Age of Onset Diabetes Mother Heart Mother [place] /cabg x4 Allergies Mother Cancer Mother lymphoma other (hypercholesterolemia) Mother Heart Father [place]-pacmaker Prostate Cancer Father Lipids Father Cancer Father bone Patient Allergies ALLERGIES No Known Allergies Current Medications Current Outpatient Medications on File Prior to Visit Medication Sig levothyroxine (LEVOXYL) 75 mcg tablet Take 1 tablet by mouth once daily. Take on empty stomach. For thyroid. amitriptyline (ELAVIL) 50 mg tablet Take 1 tablet by mouth daily at bedtime. pantoprazole DR (PROTONIX) 40 mg tablet Take 1 tablet by mouth once daily. losartan (COZAAR) 25 mg tablet Take 1 tablet by mouth once daily. rosuvastatin (CRESTOR) 5 mg tablet Take 1 tablet by mouth daily at bedtime. topiramate (TOPAMAX) 25 mg tablet Take 1 tablet by mouth twice daily. sertraline (ZOLOFT) 100 mg tablet Take 1 tablet by mouth once daily. For mood ondansetron orally disintegrating (ZOFRAN ODT) 4 mg disintegrating tablet Take 1 tablet by mouth every 6 hours as needed for nausea/vomiting. triamcinolone acetonide (KENALOG) 0.1 % cream Apply 1 application to affected area twice daily as needed. Apply sparingly to area for rash/itching. No current facility-administered medications on file prior to visit. Social History Social History Tobacco Use Smoking status: Former Types: Cigarettes Quit date: 05/18/1984 Years since quittin.5 Smokeless tobacco: Never Tobacco comments: quit in 1969/ Vaping Use Vaping Use: Never used Substance Use Topics Alcohol use: Yes Comment: occasional Drug use: No Review of Symptoms REVIEW OF SYSTEMS See HPI, otherwise negative EXAM: BP 124/86 (BP Site: Left Arm, BP Position: Sitting, BP Cuff Size: Regular Adult) Pulse 83 Resp 16 Wt 70.6 kg (155 lb 9.6 oz) SpO2 95% BMI 26.70 kg/m General Appearance: Well appearing, alert, in no acute distress, well-hydrated, well nourished.. Musculoskeletal: mild swelling to fingers of right hand, good cap refill, pain with palpation of upper palm-specifically just under her ring finger, no pain to the top of her hand, unable to make a complete fist. Psychiatric: pleasant, cooperative. Health Maintenance List RSV Vaccine(1 - 1-dose 60+ series) Never done DTaP,Tdap,Td Vaccine(2 - Td or Tdap) due on 06/07/2017 Covid-19 Vaccine(2022- season) due on 01/16/2023 Annual PCP Team Chronic Disease Visit due on 01/07/2024 BP Controlled (<130/80) due on 01/07/2024 Influenza Vaccine(1) due on 01/17/2024 Colorectal Cancer Screening due on 09/19/2024 Mammogram Screening due on 10/06/2024 Diabetes Screening due on 01/07/2026 Lipid Screening due on 01/08/2028 Bone Density Screening Completed Hepatitis C Screening Completed Shingrix Vaccine Completed Pneumococcal Vaccine: 65+ Completed Advance Directive Discussion Discontinued Data reviewed Previous records, office notes ASSESSMENT/PLAN: 1. Right hand pain - ICD9: 729.5, ICD10: M79.641 (primary diagnosis) RICE Naproxen bid with meals x14 days - XR HAND GENERAL 3V PA/LAT/OBL RIGHT - CONSULT TO ORTHOPAEDICS - NAPROXEN 500 MG TABLET 2. Trigger thumb of right hand - ICD9: 727.03, ICD10: M65.311 RICE Naproxen bid with meals x14 days - XR HAND GENERAL 3V PA/LAT/OBL RIGHT - CONSULT TO ORTHOPAEDICS - NAPROXEN 500 MG TABLET 3. Right hand weakness - ICD9: 728.87, ICD10: R29.898 RICE Naproxen bid with meals x14 days - XR HAND GENERAL 3V PA/LAT/OBL RIGHT - CONSULT TO ORTHOPAEDICS - NAPROXEN 500 MG TABLET 4. Reactive depression - ICD9: 300.4, ICD10: F32.9 - SERTRALINE 100 MG TABLET 5. Hypertension, essential - ICD9: 401.9, ICD10: I10 - Controlled - Recommend home blood pressure monitoring, to bring results to next visit - Encouraged sodium restriction, DASH or Mediterranean diet - Recommend regular aerobic exercise - LOSARTAN 25 MG TABLET 6. Migraine without aura and without status migrainosus, not intractable - ICD9: 346.10, ICD10: G43.009 - TOPIRAMATE 25 MG TABLET 7. Mixed hyperlipidemia - ICD9: 272.2, ICD10: E78.2 - ROSUVASTATIN 5 MG TABLET Chepe Hoang APRN.NEUROLOGY SPECIALIST documented in this encounter [facility] 10-07-2023 Telephone encounter Note Pt. informed via my Chart. [facility] 10-07-2023 Miscellaneous Notes Pt. informed via my Chart. Please inform patient that her mammogram is normal/negative. She will need routine screening mammogram in 1 year. Thanks Dallas Morrison DO' documented in this encounter [facility] 10-07-2023 Telephone encounter Note Please inform patient that her mammogram is normal/negative. She will need routine screening mammogram in 1 year. Thanks Dallas Morrison DO' [facility] 10-07-2023 Note Formatting of this n ote might be different from the original. October 07, 2023 PID: [id number] Raven Jj [address] [place] [address] Dear Ms. Jj, We are pleased to inform you that the results of your recent breast imaging exam on 10/07/2023 are normal. Your mammogram demonstrates that you have dense breast tissue, which could hide abnormalities. Dense breast tissue, in and of itself, is a relatively common condition. Therefore, this information is not provided to cause undue concern; rather, it is to raise your awareness and promote discussion with your health care provider regarding the presence of dense breast tissue in addition to other risk factors. Early detection of cancer is very important. We also understand recommendations regarding breast cancer screening are controversial. Please discuss with your primary care provider which strategy is best for you and whether a mammogram is right for you. Your imaging studies and report will be kept on file at [facility] as part of your permanent medical record and are available for your continuing care. Thank you for allowing us to help in meeting your health care needs. Sincerely, Dr. Clayton Interpreting Radiologist [facility] (Normal over 40) [facility] 10-07-2023 Miscellaneous Notes October 07, 2023 PID: [id number] Raven Jj [address] [place] [address] Dear Nia Parviz, We are pleased to inform you that the results of your recent breast imaging exam on 10/07/2023 are normal. Your mammogram demonstrates that you have dense breast tissue, which could hide abnormalities. Dense breast tissue, in and of itself, is a relatively common condition. Therefore, this information is not provided to cause undue concern; rather, it is to raise your awareness and promote discussion with your health care provider regarding the presence of dense breast tissue in addition to other risk factors. Early detection of cancer is very important. We also understand recommendations regarding breast cancer screening are controversial. Please discuss with your primary care provider which strategy is best for you and whether a mammogram is right for you. Your imaging studies and report will be kept on file at [facility] as part of your permanent medical record and are available for your continuing care. Thank you for allowing us to help in meeting your health care needs. Sincerely, Dr. Clayton Interpreting Radiologist [facility] (Normal over 40) documented in this encounter [facility] 06-18-2023 Miscellaneous Notes REY-01/06/23 Labs-01/07/23 NOV-none Kyleigh Vaughn LPN documented in this encounter [facility] 01-08-2023 Miscellaneous Notes Spoke with pt and information listed below given. Pt verbalizes understanding. Cinthya Johnson LPN The following approved medication requests have been transmitted electronically. Requested Prescriptions Signed Prescriptions Disp Refills levothyroxine (LEVOXYL) 75 mcg tablet 90 tablet 1 Sig: Take 1 tablet by mouth once daily. Take on empty stomach. For thyroid. Authorizing Provider: JAQUELIN ERNANDEZ APRN.JAZMÍN Spoke to patient who has been off thyroid medication for 5 months. Aware to start 75 mcg daily and will need to recheck lab work. Please file orders all pended correctly. Patient declined on crestor increase just joined weight watchers so would like to see if controlling diet will help. Tosin Reynolds Ma Please inform patient that her free t4 and free t3 levels are very low. How long has she been back on her levothyroxine? If has only been 1-2 weeks, then continue this same dose. If has been longer than that, then need for increased dose of levothyroxine to 75 mcg since her levels are so low on recent labs results Also her cholesterol is very high. Is she tolerating the crestor medication at 5 mg a day? If so, I would like her to consider increasing this to 10 mg a day Her a1c is still in the prediabetes range, stable Dallas Morrison DO documented in this encounter [facility] 01-06-2023 History of Present illness Narrative CC: Raven Jj is a 72 year old female who presents to the office for follow up HPI: Mood, overall stable, taking zoloft with benefit, no SI or HI. Is going to be traveling to [place] in Mar through August. Going to be walking/exercising routinely in [place] and she is looking forward to this since it does also help her mood. GERD, taking Protonix medication. Stable HTN, well controlled, taking Losartan, denies any dyspnea or chest pain or pressure or dizziness/LH or edema + fatigue, hair thinning, was diagnosed with subclinical hypothyroidism and started on levoxyl, she admits to not currently taking this. Is willing to recheck labs PAST MEDICAL HISTORY Diagnosis Date Advance care planning 12/17/2021 Joe Arrhythmia Cardiac murmur 01/16/2014 Diverticulosis of colon (without mention of hemorrhage) Asymptomatic, found on colonoscopy Herpes zoster with other nervous system complications(053.19) Hypercholesteremia Hypertension Migraine PAST SURGICAL HISTORY Procedure Laterality Date ARTHROSCOPY KNEE DIAGNOSTIC W/WO SYNOVIAL BX SPX Arthroscopy, right knee COLONOSCOPY 09/19/2014 incomplete d/t very tortuous colon COLONOSCOPY FLX DX W/COLLJ SPEC WHEN PFRMD 06/14/2004 Colonoscopy, screening EGD 02/27/2022 EYE SURGERY HX KNEE DEBRIDEMENT TENDON/MUSCLE, SCOPE Left 06/2018 LASIK 90s LIG/TRNSXJ FLP TUBE ABDL/VAG APPR UNI/BI Tubal ligation PAST SURGICAL HISTORY OF fatty tumor excised below left breast PAST SURGICAL HISTORY OF 03/21/2008 bilateral foot surgery - plantar fascia Social History: Social History Tobacco Use Smoking status: Former Types: Cigarettes Quit date: 05/18/1984 Years since quittin.6 Smokeless tobacco: Never Tobacco comments: quit in 1969/ Vaping Use Vaping Use: Never used Substance Use Topics Alcohol use: Yes Comment: occasional Drug use: No FAMILY HISTORY Problem Relation Age of Onset Diabetes Mother Heart Mother [place] /cabg x4 Allergies Mother Cancer Mother lymphoma other (hypercholesterolemia) Mother Heart Father [place]-pacmaker Prostate Cancer Father Lipids Father Cancer Father bone Current Outpatient prescriptions: sertraline (ZOLOFT) 100 mg tablet Take 1 tablet by mouth once daily. For mood amitriptyline (ELAVIL) 50 mg tablet Take 1 tablet by mouth daily at bedtime. pantoprazole DR (PROTONIX) 40 mg tablet Take 1 tablet by mouth once daily. losartan (COZAAR) 25 mg tablet Take 1 tablet by mouth once daily. rosuvastatin (CRESTOR) 5 mg tablet Take 1 tablet by mouth daily at bedtime. topiramate (TOPAMAX) 25 mg tablet Take 1 tablet by mouth twice daily. levothyroxine (LEVOXYL) 50 mcg tablet Take 1 tablet by mouth once daily. Take on empty stomach. For Thyroid ondansetron orally disintegrating (ZOFRAN ODT) 4 mg disintegrating tablet Take 1 tablet by mouth every 6 hours as needed for nausea/vomiting. triamcinolone acetonide (KENALOG) 0.1 % cream Apply 1 application to affected area twice daily as needed. Apply sparingly to area for rash/itching. Allergies: ALLERGIES No Known Allergies ROS: See HPI PE: 01/06/23 0927 BP: 132/78 Pulse: 88 Resp: 16 SpO2: 97% Weight: 73.9 kg (163 lb) Height: 162.6 cm (5' 4.02 ) Gen: A&O, NAD, non-toxic appearing, Pleasant, cooperative HEENT: NT/AC, PERRLA, EOMs intact b/l, nares clear and patent b/l, pharynx without erythema, exudate or lesions. Uvula midline. EACs without erythema or debris. TMs pearly toney with intact landmarks b/l. Neck: supple, No cervical LAD, no thyromegaly, no carotid bruits CV: RRR, normal S1 and S2, no murmurs, no gallops, no rubs, Pulses 2+ and symmetric in UE and LE b/l Lungs: normal respiratory effort, CTA b/l, no wheezing or rhonchi or rales Abd: soft, NT, ND, +BS, no hepatosplenomegaly MS: FROM all 4 extremities Neuro: CN II-XII intact b/l, strength 5/5 b/l UE and LE, DTRs 2/4 UE and LE, sensation intact. Skin: warm, dry, intact, No rashes or lesions on exposed skin. Scattered angiomas and seborrheic keratoses and solar lentigos No edema, normal pulses ASSESSMENT/PLAN: 1. Subclinical hypothyroidism - ICD9: 244.8, ICD10: E03.8 (primary diagnosis) - check TSH, free T4, and Free T3 today Currently not on hormone medication - COMP METABOLIC PANEL - CBC + DIFF - TSH BLD - T4 FREE/FREE THYROX - T3 FREE BLD 2. Hypertension, essential - ICD9: 401.9, ICD10: I10 - Controlled - Continue current medications - Recommend home blood pressure monitoring, to bring results to next visit - Encouraged sodium restriction, DASH or Mediterranean diet - Recommend regular aerobic exercise - LOSARTAN 25 MG TABLET - COMP METABOLIC PANEL - CBC + DIFF 3. Mixed hyperlipidemia - ICD9: 272.2, ICD10: E78.2 - Controlled - Continue current medications - Counseled on healthy diet and regular exercise - Discussed need for and benefit of weight loss. BMI 27.96 kg/(m^2) - ROSUVASTATIN 5 MG TABLET - LIPID PANEL BASIC 4. Migraine without aura and without status migrainosus, not intractable - ICD9: 346.10, ICD10: G43.009 rx refilled, stable - TOPIRAMATE 25 MG TABLET 5. Fatigue, unspecified type - ICD9: 780.79, ICD10: R53.83 stable - HGB A1C - VITAMIN B12 BLOOD 6. Impaired fasting glucose - ICD9: 790.21, ICD10: R73.01 Recheck labs, diet controlled - HGB A1C 7. Vitamin D deficiency - ICD9: 268.9, ICD10: E55.9 Continue supplement, recheck labs - VITAMIN D 25 HYDROXY 8. Iron deficiency - ICD9: 280.9, ICD10: E61.1 Continue supplement, recheck labs - IRON + TIBC 9. Encounter for screening mammogram for malignant neoplasm of breast - ICD9: V76.12, ICD10: Z12.31 - Set up for mammogram, yearly mammogram recommended - Encouraged monthly BSE - Increase calcium intake with supplements or by diet (goal of 2161-9994 mg/day - [facility] SCREENING 10. Reactive depression - ICD9: 300.4, ICD10: F32.9 rx refilled, stable - SERTRALINE 100 MG TABLET Dallas Morrison DO To ER if develops chest pain, shortness of breath, or severe worsening of symptoms. Discussed risks, benefits, alternatives, and potential side effects of medications. Patient expressed understanding and agreed with the plan. Dallas Morrison DO [address] [place] [address] documented in this encounter [facility] 11-10-2022 Miscellaneous Notes This was just ordered on 11/05/22 for 12. Spoke to pt states needs a 90 day sent to mail away . This was never done when first placed. Rey--03/11/22 Nov--01/06/23 Last refill--11/05/22 12 with 0 refills Last labs--03/25/22 documented in this encounter [facility] 11-04-2022 Miscellaneous Notes Pt called stating pharmacy told her to request 10-12 days of medication to get her through until they mail her refill of the same med to her. They will wait to fill it until after the short term fill is picked up by pt at [facility] Patient has been identified by name and date of : Yes Last office visit in this department: 03/11/2022 RX INSTRUCTIONS: Patient aware RX will be sent to pharmacy. No need to notify patient. Patient phones requesting refills as follows: Requested Prescriptions Pending Prescriptions Disp Refills amitriptyline (ELAVIL) 50 mg tablet 12 tablet 0 Sig: Take 1 tablet by mouth daily at bedtime. Please review and advise. Zoë Zhao documented in this encounter [facility] 06-19-2022 Miscellaneous Notes The following approved medication requests have been transmitted electronically. Requested Prescriptions Signed Prescriptions Disp Refills levothyroxine (LEVOXYL) 50 mcg tablet 30 tablet 1 Sig: Take 1 tablet by mouth once daily. Take on empty stomach. For Thyroid sertraline (ZOLOFT) 100 mg tablet 90 tablet 3 Sig: Take 1 tablet by mouth once daily. For mood pantoprazole DR (PROTONIX) 40 mg tablet 90 tablet 3 Sig: Take 1 tablet by mouth once daily. ondansetron orally disintegrating (ZOFRAN ODT) 4 mg disintegrating tablet 20 tablet 1 Sig: Take 1 tablet by mouth every 6 hours as needed for nausea/vomiting. triamcinolone acetonide (KENALOG) 0.1 % cream 30 g 1 Sig: Apply 1 application to affected area twice daily as needed. Apply sparingly to area for rash/itching. losartan (COZAAR) 25 mg tablet 90 tablet 3 Sig: Take 1 tablet by mouth once daily. amitriptyline (ELAVIL) 50 mg tablet 90 tablet 3 Sig: Take 1 tablet by mouth daily at bedtime. rosuvastatin (CRESTOR) 5 mg tablet 90 tablet 3 Sig: Take 1 tablet by mouth daily at bedtime. topiramate (TOPAMAX) 25 mg tablet 120 tablet 5 Sig: Take 1 tablet by mouth twice daily. Jaquelin Ernandez APRN.CNP documented in this encounter [facility] 04-04-2022 Miscellaneous Notes April 04, 2022 PID: [id number] Raven Jj [address] [place] [address] Dear Ms. Jj, We are pleased to inform you that the results of your recent breast imaging exam on 04/03/2022 are normal. Your mammogram demonstrates that you have dense breast tissue, which could hide abnormalities. Dense breast tissue, in and of itself, is a relatively common condition. Therefore, this information is not provided to cause undue concern; rather, it is to raise your awareness and promote discussion with your health care provider regarding the presence of dense breast tissue in addition to other risk factors. Early detection of cancer is very important. We also understand recommendations regarding breast cancer screening are controversial. Please discuss with your primary care provider which strategy is best for you and whether a mammogram is right for you. Your imaging studies and report will be kept on file at [facility] as part of your permanent medical record and are available for your continuing care. Thank you for allowing us to help in meeting your health care needs. Sincerely, Dr. Hayes Interpreting Radiologist [facility] (Normal over 40) documented in this encounter [facility] 04-03-2022 History of Present illness Narrative Radiology Service Progress Note PATIENT NAME: Raven Jj DATE OF SERVICE: April 03, 2022 TIME: 2:32 PM PATIENT IDENTITY VERIFICATION COMPLETED USING TWO (2) IDENTIFIERS: Name and Date of confirmed by patient verbally. FALL SCREENING: Has the patient had 2 falls in the last year or 1 fall with injury or currently using an Ambulatory Assistive Device (Walker, Cane, Wheelchair, Crutches, etc.)? No PATIENT GENDER DATA: Female. status: : No status: NO. PATIENT RELEVANT IMPLANT DATA REVIEWED: Not Applicable RADIOLOGY DEPARTMENT: Mammography PERIPHERAL IV DATA: Not applicable SIGNED BY: Paradise Bernstein Elyssafregori April 03, 2022 2:32 PM documented in this encounter [facility] 04-03-2022 Miscellaneous Notes Patient notified of results, verbalizes understanding of instructions. Kyleigh Vaughn LPN Please inform patient that the levothyroxine 50 mcg was sent to pharmacy this week. Would like her to recheck thyroid labs as ordered in 4-6 weeks after starting this. Dallas Morrison DO Pt. willing to try Synthroid . Please send to [facility]. Please inform patient that her thyroid labs free t4 and free t3 are low. Her TSH is normal appearing. This is called subclinical hypothyroidism. Is she interested in starting levothyroxine/synthroid thyroid hormone? This could potentially help with her energy and skin/hair/nails etc. It would be a hormone I would start at 50 mcg daily in the AM at least 20 min-30 min before eating. Dallas Morrison DO documented in this encounter [facility] 03-20-2022 Miscellaneous Notes Patient returned call and given provider's message below and patient verbalized understanding. Leatha Tamayo RN Yes, please have her recheck thyroid labs after 4-5 days off the biotin Dallas Morrison DO Images from the original note were not included. Please see pt mychart message and advise Dr. Morrison, when I took the blood test on the I was taking biotin. When I got home I saw the orders ask that I not take biotin that day. Should I do the blood test over? I had only started taking it for 2 days. I will need new orders if I need to retake the blood tests. Sorry about this. Raven Jj documented in this encounter [facility] 03-20-2022 Miscellaneous Notes This was addressed in TE on 03/17. Jaquelin Epps APRN.NEUROLOGY SPECIALIST documented in this encounter [facility] 03-17-2022 Miscellaneous Notes Please see TE 03/17 Leola Jimenez Ma documented in this encounter [facility] 03-11-2022 Instructions Dallas Morrison DO - 03/11/2022 9:55 AM EDT Azithromyin- as needed for sinus infection or acute bronchitis/cough Ciprofloxacin- as needed for UTI or traveler's diarrhea Zofran - as needed for nausea/vomiting. documented in this encounter [facility] 03-11-2022 History of Present illness Narrative CC: Raven Jj is a 71 year old female who presents to the office for follow up HPI: Mood, overall stable, taking zoloft with benefit, no SI or HI. Is going to be traveling to [place] in Mar through August. Going to be walking/exercising routinely in [place] and she is looking forward to this since it does also help her mood. GERD, taking Protonix medication. Stable HTN, well controlled, taking Losartan + fatigue, hair thinning pH, Urine Date Value Ref Range Status 03/10/2022 5.5 5.0 - 8.0 Final Specific [place], Ur Date Value Ref Range Status 03/10/2022 1.019 1.005 - 1.030 Final Glucose, Urine Date Value Ref Range Status 03/10/2022 Negative Negative Final Bilirubin, Urine Date Value Ref Range Status 03/10/2022 Negative Negative Final Ketones, Urine Date Value Ref Range Status 03/10/2022 Negative Negative Final Hemoglobin/Blood,Ur Date Value Ref Range Status 03/10/2022 Negative Negative Final Protein, Urine Date Value Ref Range Status 03/10/2022 Negative Negative Final Urobilinogen Date Value Ref Range Status 03/10/2022 Negative Negative Final Nitrites Date Value Ref Range Status 03/10/2022 2+ (A) Negative Final WBC, Urine Date Value Ref Range Status 03/10/2022 6-10 /HPF (A) 0-5 /HPF Final PAST MEDICAL HISTORY Diagnosis Date Advance care planning 12/17/2021 Joe Arrhythmia Cardiac murmur 01/16/2014 Diverticulosis of colon (without mention of hemorrhage) Asymptomatic, found on colonoscopy Herpes zoster with other nervous system complications(053.19) Hypercholesteremia Hypertension Migraine PAST SURGICAL HISTORY Procedure Laterality Date ARTHROSCOPY KNEE DIAGNOSTIC W/WO SYNOVIAL BX SPX Arthroscopy, right knee COLONOSCOPY 09/19/2014 incomplete d/t very tortuous colon COLONOSCOPY FLX DX W/COLLJ SPEC WHEN PFRMD 06/14/2004 Colonoscopy, screening EYE SURGERY HX KNEE DEBRIDEMENT TENDON/MUSCLE, SCOPE Left 06/2018 LASIK 90s LIG/TRNSXJ FLP TUBE ABDL/VAG APPR UNI/BI Tubal ligation PAST SURGICAL HISTORY OF fatty tumor excised below left breast PAST SURGICAL HISTORY OF 03/21/2008 bilateral foot surgery - plantar fascia Current Outpatient Medications Medication Sig losartan (COZAAR) 25 mg tablet Take 1 tablet by mouth once daily. amitriptyline (ELAVIL) 50 mg tablet Take 1 tablet by mouth daily at bedtime. rosuvastatin (CRESTOR) 5 mg tablet Take 1 tablet by mouth daily at bedtime. topiramate (TOPAMAX) 25 mg tablet Take 1 tablet by mouth twice daily. sertraline (ZOLOFT) 100 mg tablet Take 1 tablet by mouth once daily. For mood pantoprazole DR (PROTONIX) 40 mg tablet Take 1 tablet by mouth once daily. ciprofloxacin HCl (CIPRO) 500 mg tablet Take 1 tablet by mouth twice daily for 7 days. azithromycin (ZITHROMAX Z-LLUVIA) 250 mg tablet Take 2 tablets day one, then, 1 tablet daily until gone. ondansetron orally disintegrating (ZOFRAN ODT) 4 mg disintegrating tablet Take 1 tablet by mouth every 6 hours as needed for nausea/vomiting. No current facility-administered medications for this visit. ALLERGIES No Known Allergies Social History Tobacco Use Smoking status: Former Types: Cigarettes Quit date: 05/18/1984 Years since quittin.8 Smokeless tobacco: Never Tobacco comments: quit in 1969/ Vaping Use Vaping Use: Never used Substance Use Topics Alcohol use: Yes Comment: occasional Drug use: No ROS: See HPI PE: BP 120/80 Pulse 80 Temp (Src) 97 (Right Tympanic) Resp 16 Wt 152 lb (68.9kg) Gen: A&OX3, NAD, non-toxic appearing HEENT: PERRLA, EOMs intact b/l, nares without drainage, pharynx without erythema, exudate, lesions, or drainage. Uvula midline. Neck: No LAD, no thyromegaly, no meningismus. CV: RRR, no murmur Lungs: CTA b/l, no wheezing Skin: erythematous papular rash on chest Hair thinning Fatigued appearing No edema, normal pulses ASSESSMENT/PLAN: 1. Reactive depression - ICD9: 300.4, ICD10: F32.9 (primary diagnosis) - rx refilled, chronic, stable - SERTRALINE 100 MG TABLET - TSH BLD - T4 FREE/FREE THYROX - T3 FREE BLD - CBC + DIFF - VITAMIN D 25 HYDROXY - VITAMIN B12 BLOOD - RBC FOLATE - IRON + TIBC 2. Acute cystitis without hematuria - ICD9: 595.0, ICD10: N30.00 - start on antibiotic, recheck urine in 2 weeks as ordered. - CIPROFLOXACIN 500 MG TABLET - URINALYSIS, WITH MICROSCOPIC - URINE CULTURE - CIPROFLOXACIN 500 MG TABLET 3. Encounter for screening mammogram for malignant neoplasm of breast - ICD9: V76.12, ICD10: Z12.31 - Set up for mammogram, yearly mammogram recommended - Encouraged monthly BSE - [facility] SCREENING 4. Travel advice encounter - ICD9: V65.49, ICD10: Z71.84 - AZITHROMYCIN 250 MG TABLET - ONDANSETRON 4 MG DISINTEGRATING TABLET 5. Hair loss - ICD9: 704.00, ICD10: L65.9 - labs as ordered. - TSH BLD - T4 FREE/FREE THYROX - T3 FREE BLD - CBC + DIFF - VITAMIN D 25 HYDROXY - VITAMIN B12 BLOOD - RBC FOLATE - IRON + TIBC 6. Fatigue, unspecified type - ICD9: 780.79, ICD10: R53.83 Labs as ordered. - TSH BLD - T4 FREE/FREE THYROX - T3 FREE BLD - CBC + DIFF - VITAMIN D 25 HYDROXY - VITAMIN B12 BLOOD - RBC FOLATE - IRON + TIBC 7. Dermatitis - ICD9: 692.9, ICD10: L30.9 - discussed skin care of rash - follow up if symptoms persist or worsen. - TRIAMCINOLONE ACETONIDE 0.1 % TOPICAL CREAM 8. Gastroesophageal reflux disease with esophagitis without hemorrhage - ICD9: 530.81, 530.10, ICD10: K21.00 - Discussed lifestyle modifications including losing weight, limiting caffeine, no meals three hours before sleep, and head of bed elevation - f/u with specialist- concerns for potential EoE 9. Throat clearing - ICD9: 786.09, ICD10: R09.89 - Discussed lifestyle modifications including losing weight, limiting caffeine, no meals three hours before sleep, and head of bed elevation - f/u with specialist- concerns for potential EoE 10. Mixed hyperlipidemia - ICD9: 272.2, ICD10: E78.2 - to be determined upon return of lab results - Encouraged following a low fat, low cholesterol diet. - Discussed the benefits of regular aerobic exercise and weight loss. Dallas Morrison DO Return if no improvement. Follow up with Dallas Morrison DO. To ER if develops chest pain, shortness of breath Discussed risks, benefits, alternatives, and potential side effects of medications. Patient/Guardian expressed understanding and agreed with the plan. See patient instructions. Dallas Morrison DO [address] [place] [address] documented in this encounter [facility] 02-26-2022 Miscellaneous Notes Spoke with pt gave information provided. Pt voices understanding. Orders placed for urine for patient. Please inform Dallas Morrison DO Pt stopped in to have lab work done and there was no order to check urine. Please place order for urine to be checked. The lab took the specimen and holding for order. Cinthya KLEIN documented in this encounter [facility] 02-07-2022 Miscellaneous Notes See phone note 02/07/22 documented in this encounter [facility] 02-05-2022 Miscellaneous Notes Patient phones requesting refills as follows: Requested Prescriptions Pending Prescriptions Disp Refills pantoprazole DR (PROTONIX) 40 mg tablet [Pharmacy Med Name: Pantoprazole Sodium 40 MG Oral Tablet Delayed Release] 30 tablet 0 Sig: TAKE 1 TABLET BY MOUTH 30 MINUTES BEFORE BREAKFAST ON AN EMPTY STOMACH REY 12/17/21 NOV 03/11/22 Please review and advise. Deepak Apodaca LPN documented in this encounter [facility] 12-19-2021 Miscellaneous Notes Pt notified of such. Thanks this nurse. New rx sent. Please let patient know. The following approved medication requests have been transmitted electronically. Signed Prescriptions Disp Refills pantoprazole DR (PROTONIX) 40 mg tablet 30 tablet 2 Sig: Take 1 tablet by mouth daily before breakfast. Take on empty stomach, 1/2 hr before meal. Authorizing Provider: JAQUELIN EPPS APRN.CNP Spoke with pt she has no trouble swallowing pills at all. She states must be a mistake says has always gotten pills. Please reach out to patient and see if she has trouble swallowing pills. If not, this may have just been a mistake. Thank you, Jaquelin Epps APRN.JAZMÍN rec'd PA for pantoprazole sodium 40 mg packets. Is there a reason she can take the tablets? documented in this encounter [facility] 12-17-2021 Instructions Dallas Morrison DO - 12/17/2021 10:01 AM EDT Start Probiotic at bedtime, refrigerated PB8 or Primadolphilus at [place] [employer] Florajen or Florastor options for [facility] or [facility] etc. Start on Protonix 40 mg in the AM at least 15-30 min before eating for 3 months, if symptoms improve then we will taper off this medication and see how you are feeling Increase zoloft to 100 mg a day for mood. documented in this encounter [facility] 12-17-2021 History of Present illness Narrative CC: Raven Jj is a 71 year old female who presents to the office for follow up HPI: Dry cough, non productive, started about 1 month ago and comes and goes, did have a loss of voice about 1 month ago and now this comes and goes. Feels like she has heartburn that comes and goes- it is clear up in my throat, not when I eat, I have to drink something to make it better. Thinks symptoms are present 6 months or longer for the hoarseness and tickle in her throat that comes and goes, seems to be present daily now. HTN, taking medication as prescribed, seems to be controlled. Mood, struggling still with some depressed mood at times since the unexpected loss of her 50 year old son from suicide in Jan 2021. Is taking the zoloft 50 mg a day which she does feels helps but feels dose needs to be increased. No SI or HI. Has good support from PAST MEDICAL HISTORY Diagnosis Date Arrhythmia Cardiac murmur 01/2014 Diverticulosis of colon (without mention of hemorrhage) Asymptomatic, found on colonoscopy Herpes zoster with other nervous system complications(053.19) Hypercholesteremia Migraine PAST SURGICAL HISTORY Procedure Laterality Date ARTHROSCOPY KNEE DIAGNOSTIC W/WO SYNOVIAL BX SPX Arthroscopy, right knee COLONOSCOPY 09/19/14 incomplete d/t very tortuous colon COLONOSCOPY FLX DX W/COLLJ SPEC WHEN PFRMD 06/14/2004 Colonoscopy, screening KNEE DEBRIDEMENT TENDON/MUSCLE, SCOPE Left 06/2018 LASIK 90s LIG/TRNSXJ FLP TUBE ABDL/VAG APPR UNI/BI Tubal ligation PAST SURGICAL HISTORY OF fatty tumor excised below left breast PAST SURGICAL HISTORY OF 03/21/08 bilateral foot surgery - plantar fascia Current Outpatient Medications Medication Sig sertraline (ZOLOFT) 100 mg tablet Take 1 tablet by mouth once daily. For mood losartan (COZAAR) 25 mg tablet Take 1 tablet by mouth once daily. amitriptyline (ELAVIL) 50 mg tablet Take 1 tablet by mouth daily at bedtime. rosuvastatin (CRESTOR) 5 mg tablet Take 1 tablet by mouth daily at bedtime. topiramate (TOPAMAX) 25 mg tablet Take 1 tablet by mouth twice daily. pantoprazole (PROTONIX) 40 mg grps Take 1 Packet by mouth DAILY (6 AM). For LPR reflux No current facility-administered medications for this visit. ALLERGIES No Known Allergies Social History Tobacco Use Smoking status: Former Smoker Types: Cigarettes Quit date: 05/18/1984 Years since quittin.6 Smokeless tobacco: Never Used Tobacco comment: quit in 1969/ Vaping Use Vaping Use: Never used Substance Use Topics Alcohol use: Yes Comment: occasional Drug use: No ROS: See HPI PE: BP 130/80 Pulse 76 Temp (Src) 97.2 (Temporal) Resp 16 Wt 150 lb (68.0kg) Gen: A&OX3, NAD, non-toxic appearing HEENT: PERRLA, EOMs intact b/l, nares without drainage, pharynx with mild posterior irritation without pharyngeal erythema, exudate, lesions, or drainage. Uvula midline. Slightly dry mucous membranes Neck: No LAD, no thyromegaly, no meningismus. CV: RRR, no murmur Lungs: CTA b/l, no wheezing Abd: soft, NT, ND, normal BS Skin: No rashes, lesions, or wounds on exposed skin. ASSESSMENT/PLAN: 1. Reactive depression - ICD9: 300.4, ICD10: F32.9 (primary diagnosis) - increase dose of zoloft to 100 mg a day, f/u in office in 1-2 months and prn, no SI orHI. Has good support. - SERTRALINE 100 MG TABLET 2. Mixed hyperlipidemia - ICD9: 272.2, ICD10: E78.2 - good control - Encouraged following a low fat, low cholesterol diet. 3. Hypertension, essential - ICD9: 401.9, ICD10: I10 - good control - Encouraged dietary sodium restriction/DASH diet - Recommended regular aerobic exercise. - Recommend home blood pressure monitoring, to bring results in on next visit - Goal of BP <130/80 4. Gastroesophageal reflux disease with esophagitis without hemorrhage - ICD9: 530.81, 530.10, ICD10: K21.00 - Discussed lifestyle modifications including losing weight, limiting caffeine, no meals three hours before sleep and head of bed elevation - Begin treatment with Protonix 40 mg every day - if symptoms aren't improved then will need EGD as d/w her today 5. Hoarseness - ICD9: 784.42, ICD10: R49.0 - Discussed lifestyle modifications including losing weight, limiting caffeine, no meals three hours before sleep and head of bed elevation - Begin treatment with Protonix 40 mg every day - if symptoms aren't improved then will need EGD as d/w her today 6. Throat clearing - ICD9: 784.99, ICD10: R09.89 - Discussed lifestyle modifications including losing weight, limiting caffeine, no meals three hours before sleep and head of bed elevation - Begin treatment with Protonix 40 mg every day - if symptoms aren't improved then will need EGD as d/w her today Dallas Morrison DO Return if no improvement. Follow up with Dallas Morrison DO. To ER if develops chest pain, shortness of breath Discussed risks, benefits, alternatives, and potential side effects of medications. Patient/Guardian expressed understanding and agreed with the plan. See patient instructions. Dallas Morrison DO [address] [place] [address] documented in this encounter [facility] 10-21-2021 Miscellaneous Notes RX INSTRUCTIONS: Patient aware RX will be sent to pharmacy. No need to notify patient. Last OV: 06/05/21 VV with Viktor Last refill: 09/28/20 With 90 and 3 refills Last oarrs report completed: N/A PLEASE REVIEW ON [facility] Follow up: 03/11/22 with PCP-renew prescriptions & quit antidepressant Bessie Farr MA documented in this encounter [facility] 09-17-2021 History of Present illness Narrative Radiology Service Progress Note PATIENT NAME: Raven Jj DATE OF SERVICE: September 17, 2021 TIME: 10:04 AM PATIENT IDENTITY VERIFICATION COMPLETED USING TWO (2) IDENTIFIERS: Name and Date of confirmed by patient verbally. FALL SCREENING: Has the patient had 2 falls in the last year or 1 fall with injury or currently using an Ambulatory Assistive Device (Walker, Cane, Wheelchair, Crutches, etc.)? No PATIENT GENDER DATA: Female. status: : No status: NO. PATIENT RELEVANT IMPLANT DATA REVIEWED: Not Applicable RADIOLOGY DEPARTMENT: Bone Density PERIPHERAL IV DATA: Not applicable SIGNED BY: RT German(R) September 17, 2021 10:04 AM documented in this encounter [facility] 08-12-2021 History of Present illness Narrative POPULATION HEALTH NAVIGATION OUTREACH Action/FYI: [employer] Care Gaps Discuss/Due: Advance Directives, BP Check, Screening Mammogram 04/08/22 or after, Medicare Wellness 03/05/22 or after Outcome: Left voicemail with my direct number and sent Event[employer] message. Pt identified by name and : NO Outreach Outcome/Action Unable to reach patient: Left message Healthcare Interactive[employer] message sent Reason for Outreach Care Gap or Scheduling/Wellness visits Payer: Payor: [employer] MEDICARE / Plan: [employer] MEDICARE PPO / Product Type: PPO / Care Gap Reviewed:: Breast Cancer screening Controlling Blood Pressure Reminder: Reminder note to check Health Maintenance for items below Health Maintenance items due: BP CONTROLLED (<130/80) Never done SHINGRIX VACCINE(1 of 2) Never done DTAP,TDAP,TD(2 - Td or Tdap) due on 06/07/2017 COVID-19 VACCINE(3 - Booster for Moderna series) due on 12/25/2020 ADVANCE DIRECTIVE DISCUSSION Never done Message Sent to Practice: No Navigation Signature: Andreina Keane Population Health Navigator August 12, 2021 12:16 PM documented in this encounter [facility] 06-07-2007 History of Past i llness Narrative Problem Noted Date Resolved Date Encounter for long-term (current) use of other m edications 06/07/2007 11/21/2009 Overview: HRT for menopausal HF's Dermatophytosis of nail 05/19/2006 11/22/19 10 Headache(784.0) 01/13/2006 11/21/2009 Overview: chr daily HILLMAN documented as of this encounter (statuses as of 08/12/2021) [facility] History of Past illness Narrative* Problem Noted Date Resolved Date Encounter for long-term (current) use of other m edications 06/07/2007 11/21/2009 Overview: HRT for menopausal HF's Dermatophytosis of nail 05/19/2006 11/22/19 10 Headache(784.0) 01/13/2006 11/21/2009 Overview: chr daily HILLMAN documented as of this encounter (statuses as of 09/18/2021) [facility] History of Past illness Narrative* Problem Noted Date Resolved Date Encounter for long-term (current) use of other m edications 06/07/2007 11/21/2009 Overview: HRT for menopausal HF's Dermatophytosis of nail 05/19/2006 11/22/19 10 Headache(784.0) 01/13/2006 11/21/2009 Overview: chr daily HILLMAN documented as of this encounter (statuses as of 10/21/2021) [facility] History of Past illness Narrative* Problem Noted Date Resolved Date Encounter for long-term (current) use of other m edications 06/07/2007 11/21/2009 Overview: HRT for menopausal HF's Dermatophytosis of nail 05/19/2006 11/22/19 10 Headache(784.0) 01/13/2006 11/21/2009 Overview: chr daily HILLMAN documented as of this encounter (statuses as of 10/22/2021) [facility] History of Past illness Narrative* Problem Noted Date Resolved Date Encounter for long-term (current) use of other m edications 06/07/2007 11/21/2009 Overview: HRT for menopausal HF's Dermatophytosis of nail 05/19/2006 11/22/19 10 Headache(784.0) 01/13/2006 11/21/2009 Overview: chr daily HILLMAN documented as of this encounter (statuses as of 12/17/2021) [facility] History of Past illness Narrative* Problem Noted Date Resolved Date Encounter for long-term (current) use of other m edications 06/07/2007 11/21/2009 Overview: HRT for menopausal HF's Dermatophytosis of nail 05/19/2006 11/22/19 10 Headache(784.0) 01/13/2006 11/21/2009 Overview: chr daily HILLMAN documented as of this encounter (statuses as of 12/19/2021) [facility] History of Past illness Narrative* Problem Noted Date Resolved Date Encounter for long-term (current) use of other m edications 06/07/2007 11/21/2009 Overview: HRT for menopausal HF's Dermatophytosis of nail 05/19/2006 11/22/19 10 Headache(784.0) 01/13/2006 11/21/2009 Overview: chr daily HILLMAN documented as of this encounter (statuses as of 02/05/2022) [facility] History of Past illness Narrative* Problem Noted Date Resolved Date Encounter for long-term (current) use of other m edications 06/07/2007 11/21/2009 Overview: HRT for menopausal HF's Dermatophytosis of nail 05/19/2006 11/22/19 10 Headache(784.0) 01/13/2006 11/21/2009 Overview: chr daily HILLMAN documented as of this encounter (statuses as of 02/07/2022) [facility] History of Past illness Narrative* Problem Noted Date Resolved Date Encounter for long-term (current) use of other m edications 06/07/2007 11/21/2009 Overview: HRT for menopausal HF's Dermatophytosis of nail 05/19/2006 11/22/19 10 Headache(784.0) 01/13/2006 11/21/2009 Overview: chr daily HILLMAN documented as of this encounter (statuses as of 02/26/2022) [facility] History of Past illness Narrative* Problem Noted Date Resolved Date Encounter for long-term (current) use of other m edications 06/07/2007 11/21/2009 Overview: HRT for menopausal HF's Dermatophytosis of nail 05/19/2006 11/22/19 10 Headache(784.0) 01/13/2006 11/21/2009 Overview: chr daily HILLMAN documented as of this encounter (statuses as of 03/11/2022) [facility] History of Past illness Narrative* Problem Noted Date Resolved Date Encounter for long-term (current) use of other m edications 06/07/2007 11/21/2009 Overview: HRT for menopausal HF's Dermatophytosis of nail 05/19/2006 11/22/19 10 Headache(784.0) 01/13/2006 11/21/2009 Overview: chr daily HILLMAN documented as of this encounter (statuses as of 03/17/2022) [facility] History of Past illness Narrative* Problem Noted Date Resolved Date Encounter for long-term (current) use of other m edications 06/07/2007 11/21/2009 Overview: HRT for menopausal HF's Dermatophytosis of nail 05/19/2006 11/22/19 10 Headache(784.0) 01/13/2006 11/21/2009 Overview: chr daily HILLMAN documented as of this encounter (statuses as of 03/20/2022) [facility] History of Past illness Narrative* Problem Noted Date Resolved Date Encounter for long-term (current) use of other m edications 06/07/2007 11/21/2009 Overview: HRT for menopausal HF's Dermatophytosis of nail 05/19/2006 11/22/19 10 Headache(784.0) 01/13/2006 11/21/2009 Overview: chr daily HILLMAN documented as of this encounter (statuses as of 03/20/2022) [facility] History of Past illness Narrative* Problem Noted Date Resolved Date Encounter for long-term (current) use of other m edications 06/07/2007 11/21/2009 Overview: HRT for menopausal HF's Dermatophytosis of nail 05/19/2006 11/22/19 10 Headache(784.0) 01/13/2006 11/21/2009 Overview: chr daily HILLMAN documented as of this encounter (statuses as of 04/08/2022) [facility] History of Past illness Narrative* Problem Noted Date Resolved Date Encounter for long-term (current) use of other m edications 06/07/2007 11/21/2009 Overview: HRT for menopausal HF's Dermatophytosis of nail 05/19/2006 11/22/19 10 Headache(784.0) 01/13/2006 11/21/2009 Overview: chr daily HILLMAN documented as of this encounter (statuses as of 06/19/2022) [facility] History of Past illness Narrative* Problem Noted Date Resolved Date Encounter for long-term (current) use of other m edications 06/07/2007 11/21/2009 Overview: HRT for menopausal HF's Dermatophytosis of nail 05/19/2006 11/22/19 10 Headache(784.0) 01/13/2006 11/21/2009 Overview: chr daily H[facility]MAN documented as of this encounter (statuses as of 11/05/2022) [facility] History of Past illness Narrative* Problem Noted Date Resolved Date Encounter for long-term (current) use of other m edications 06/07/2007 11/21/2009 Overview: HRT for menopausal HF's Dermatophytosis of nail 05/19/2006 11/22/19 10 Headache(784.0) 01/13/2006 11/21/2009 Overview: chr daily HILLMAN documented as of this encounter (statuses as of 11/11/2022) [facility] History of Past illness Narrative* Problem Noted Date Resolved Date Encounter for long-term (current) use of other m edications 06/07/2007 11/21/2009 Overview: HRT for menopausal HF's Dermatophytosis of nail 05/19/2006 11/22/19 10 Headache(784.0) 01/13/2006 11/21/2009 Overview: chr daily HILLMAN documented as of this encounter (statuses as of 11/14/2022) [facility] History of Past illness Narrative* Problem Noted Date Resolved Date Encounter for long-term (current) use of other m edications 06/07/2007 11/21/2009 Overview: HRT for menopausal HF's Dermatophytosis of nail 05/19/2006 11/22/19 10 Headache(784.0) 01/13/2006 11/21/2009 Overview: chr daily HILLMAN documented as of this encounter (statuses as of 11/14/2022) [facility] History of Past illness Narrative* Problem Noted Date Diagnosed Date Resolved Date Encounter for long-term (cur rent) use of other medications 06/07/2007 11/21/2009 Overview: HRT for menopausal HF's Dermatophytosis of nail 05/19/2006 0711/2009 Headache(784.0) 01/13/2006 11/21/2009 Overview: chr daily HILLMAN documented as of this encounter (statuses as of 01/06/2023) [facility] History of Past illness Narrative* Problem Noted Date Diagnosed Date Resolved Date Encounter for long-term (cur rent) use of other medications 06/07/2007 11/21/2009 Overview: HRT for menopausal HF's Dermatophytosis of nail 05/19/200611/2009 Headache(784.0) 01/13/2006 11/21/2009 Overview: chr daily HILLMAN documented as of this encounter (statuses as of 01/08/2023) [facility] History of Past illness Narrative* Problem Noted Date Diagnosed Date Resolved Date Encounter for long-term (cur rent) use of other medications 06/07/2007 11/21/2009 Overview: HRT for menopausal HF's Dermatophytosis of nail 05/19/200611/2009 Headache(784.0) 01/13/2006 11/21/2009 Overview: chr daily HILLMAN documented as of this encounter (statuses as of 03/22/2023) [facility] History of Past illness Narrative* Problem Noted Date Diagnosed Date Resolved Date Encounter for long-term (cur rent) use of other medications 06/07/2007 11/21/2009 Overview: HRT for menopausal HF's Dermatophytosis of nail 05/19/200611/2009 Headache(784.0) 01/13/2006 11/21/2009 Overview: chr daily HILLMAN documented as of this encounter (statuses as of 06/19/2023) [facility] Post-menopausal Asymptomatic postmenopausal status (age-related) (natural) [facility] Diagnosis Hypertension, essential Unspecified essential hypertension Mixed hyperlipidemia [facility] Reactive depression- Primary Dysthymic disorder Mixed hyperlipidemia Hypertension, essential Unspecified essential hypertension Gastroesophageal reflux disease with esophagitis without hemorrhage Hoarseness Dysphonia Throat clearing Other symptoms involving head and neck Abnormal urine odor Other nonspecific finding on examination of urine [facility] Diagnosis Dysuria- Primary Gastroesophageal reflux disease with esophagitis without hemorrhage- Primary [facility] Diagnosis Reactive depression- Primary Dysthymic disorder Acute cystitis without hematuria Acute cystitis Encounter for screening mammogram for malignant neoplasm of breast Other screening mammogram Travel advice encounter Other specified counseling Hair loss Alopecia, unspecified Fatigue, unspecified type Dermatitis Contact dermatitis and other eczema, due to unspecified cause Gastroesophageal reflux disease with esophagitis without hemorrhage Throat clearing Other symptoms involving head and neck Mixed hyperlipidemia [facility] Diagnosis Borderline abnormal thyroid function test- Primary Nonspecific abnormal results of thyroid function study [facility] Diagnosis Subclinical hypothyroidism Other specified acquired hypothyroidism Reactive depression Dysthymic disorder Travel advice encounter Other specified counseling Dermatitis Contact dermatitis and other eczema, due to unspecified cause Hypertension, essential Unspecified essential hypertension Mixed hyperlipidemia Migraine without aura and without status migrainosus, not intractable Migraine without aura, without mention of intractable migraine without mention of status migrainosus [facility] Diagnosis Subclinical hypothyroidism- Primary Other specified acquired hypothyroidism [facility] Diagnosis Subclinical hypothyroidism- Primary Other specified acquired hypothyroidism Hypertension, essential Unspecified essential hypertension Mixed hyperlipidemia Migraine without aura and without status migrainosus, not intractable Migraine without aura, without mention of intractable migraine without mention of status migrainosus Fatigue, unspecified type Impaired fasting glucose Vitamin D deficiency Unspecified vitamin D deficiency Iron deficiency Iron deficiency anemia, unspecified Encounter for screening mammogram for malignant neoplasm of breast Other screening mammogram Reactive depression Dysthymic disorder [facility] Diagnosis Subclinical hypothyroidism Other specified acquired hypothyroidism [facility] Diagnosis Encounter for screening mammogram for malignant neoplasm of breast Other screening mammogram [facility] Diagnosis Encounter for screening mammogram for malignant neoplasm of breast Other screening mammogram [facility] Diagnosis Right hand pain- Primary Pain in limb Trigger thumb of right hand Trigger finger (acquired) Right hand weakness Muscle weakness (generalized) Reactive depression Dysthymic disorder Hypertension, essential Unspecified essential hypertension Migraine without aura and without status migrainosus, not intractable Migraine without aura, without mention of intractable migraine without mention of status migrainosus Mixed hyperlipidemia [facility] Diagnosis Pain- Primary Generalized pain [facility] Diagnosis Mixed hyperlipidemia- Primary Encounter for screening examination for other mental health and behavioral disorders Hypertension, essential Unspecified essential hypertension Impaired fasting glucose Subclinical hypothyroidism Other specified acquired hypothyroidism Vitamin D deficiency Unspecified vitamin D deficiency Encounter for vitamin deficiency screening Screening for other and unspecified endocrine, nutritional, metabolic, and immunity disorders documented in this encounter [facility] for referral (narrative)* Diagnostic Procedure Only (Routine) - Authorized Specialty Diagnoses / Procedures Referred By Kaci stevens Referred To Contact BR IMAGING Diagnoses Encounter for screening mammogram for malignant neoplasm of breast Procedures DEYSI SCREENING SCREENING MAMMOGRAPHY BI 2-VIEW BREAST INC Dallas Duron, DO [address] [place] [address] [address] [place] [address] Referral ID Status Reason Start Date Expiration Date Visits Requested Visits Authorized [id number] Authorized Auto-Generat ed Referral 04/10/2023 1 1 T [facility] for referral (narrative)* Diagnostic Procedure Only (Routine) - Pending Review Specialty Diagnoses / Procedures Referred By Kaci stevens Referred To Contact BR IMAGING Diagnoses Encounter for screening mammogram for malignant neoplasm of breast Procedures DEYSI SCREENING SCREENING MAMMOGRAPHY BI 2-VIEW BREAST INC Dallas Duron, DO [address] [place] [address] [facility] [address] [place] [address] Referral ID Status Reason Start Date Expiration Date Visits Requested Visits Authorized [id number] Pending Review Auto-Generat ed Referral 01/06/2023 02/05/2024 1 1 [facility] for referral (narrative)* Diagnostic Procedure Only (Routine) - Closed Specialty Diagnoses / Procedures Referred By Kaci t Referred To Contact BR IMAGING Diagnoses Encounter for screening mammogram for malignant neoplasm of breast Procedures DEYSI SCREENING SCREENING MAMMOGRAPHY BI 2-VIEW BREAST INC CAD Dallas Mrorison, DO [address] [place] [address] [facility] [address] [place] [address] Referral ID Status Reason Start Date Expiration Date V isits Requested Visits Authorized [id number] Closed Auto-Generate d Referral 03/11/2022 04/10/2023 1 1 [facility] for referral (narrative)* Diagnostic Procedure Only (Routine) - Closed Specialty Diagnoses / Procedures Referred By Contac t Referred To Contact BR IMAGING Diagnoses Encounter for screening mammogram for malignant neoplasm of breast Procedures DEYSI SCREENING SCREENING MAMMOGRAPHY BI 2-VIEW BREAST INC CAD Dallas Morrison, DO [address] [place] [address] [facility] [address] [place] [address] Referral ID Status Reason Start Date Expiration Date V isits Requested Visits Authorized [id number] Closed Auto-Generate d Referral 01/06/2023 02/05/2024 1 1 [facility] for referral (narrative)* Diagnostic Procedure Only (Routine) - Authorized Specialty Diagnoses / Procedures Referred By Contac t Referred To Contact XR IMAGING Diagnoses Pain Procedures XR HAND GENERAL 3V PA/LAT/OBL LEFT RADEX HAND MINIMUM 3 VIEWS Raven Barron PA-C [address] [place] [address] [place] [address] Referral ID Status Reason Start Date Expiration Date Visits Requested Visits Authorized [id number] Authorized Auto-Generat ed Referral 12/14/2023 01/12/2025 1 1 [facility] for visit Narrative* Diagnostic Procedure Only (Routine) - Closed Specialty Diagnoses / Procedures Referred By Contac t Referred To Contact BR IMAGING Diagnoses Encounter for screening mammogram for malignant neoplasm of breast Procedures DEYSI SCREENING SCREENING MAMMOGRAPHY BI 2-VIEW BREAST INC CAD Dallas oMrrison L, DO [address] [place] [address] [facility] [address] [place] [address] Referral ID Status Reason Start Date Expiration Date V isits Requested Visits Authorized [id number] Closed Auto-Generate d Referral 03/11/2022 04/10/2023 1 1 [facility] for visit Narrative* Diagnostic Procedure Only (Routine) - Closed Specialty Diagnoses / Procedures Referred By Contac t Referred To Contact BR IMAGING Diagnoses Encounter for screening mammogram for malignant neoplasm of breast Procedures DEYSI SCREENING SCREENING MAMMOGRAPHY BI 2-VIEW BREAST INC CAD Dallas Morrison L, DO [address] [place] [address] [facility] [address] [place] [address] Referral ID Status Reason Start Date Expiration Date V isits Requested Visits Authorized [id number] Closed Auto-Generate d Referral 01/06/2023 02/05/2024 1 1 [facility] for visit Narrative* Diagnostic Procedure Only (Routine) - Closed Specialty Diagnoses / Procedures Referred By Kaci t Referred To Contact XR IMAGING Diagnoses Right hand pain Right hand weakness Procedures XR HAND GENERAL 3V PA/LAT/OBL RIGHT RADEX HAND MINIMUM 3 VIEWS Chepe Hoang APRN.NEUROLOGY SPECIALIST [address] [place] [address] [place] [address] Referral ID Status Reason Start Date Expiration Date V isits Requested Visits Authorized [id number] Closed Auto-Generate d Referral 11/27/2023 12/26/2024 1 1 [facility] Summary Purpose Family History No Family History Records FoundNo Family History Records Found Advance Directives No Advanced Directives Records FoundDocuments on File Type Date Recorded 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 Advance Directive(s) 09/19/2014 9:04 AM Advance Directive(s) 09/19/2014 9:06 AM Documents on File Type Date Recorded 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 Advance Directive(s) 09/19/2014 9:04 AM Advance Directive(s) 09/19/2014 9:06 AM Documents on File Type Date Recorded 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 Advance Directive(s) 09/19/2014 9:06 AM Advance Directive(s) 09/19/2014 9:04 AM Documents on File Type Date Recorded 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 Advance Directive(s) 09/19/2014 9:06 AM Advance Directive(s) 09/19/2014 9:04 AM Reason for Referral Specialty Diagnoses / Procedures Referred By Contac t Referred To Contact Orthopedics Diagnoses Right hand pain Right hand weakness Procedures CONSULT TO ORTHOPAEDICS OFFICE/OUTPATIENT [facility] HIGH MDM 60 MINUTES Chepe Hoang, NAIL STICKER.NEUROLOGY SPECIALIST [address] [place] [address] Referral ID Status Reason Start Date Expiration Date Visits Requested Visits Authorized [id number] Authorized PCP Requested Referral 11/27/2023 11/26/2024 1 1 Specialty Diagnoses / Procedures Referred By Contac t Referred To Contact XR IMAGING Diagnoses Right hand pain Right hand weakness Procedures XR HAND GENERAL 3V PA/LAT/OBL RIGHT RADEX HAND MINIMUM 3 VIEWS Chepe Hoang, NAIL STICKER.NEUROLOGY SPECIALIST [address] [place] [address] [place] [address] Referral ID Status Reason Start Date Expiration Date Visits Requested Visits Authorized [id number] Authorized Auto-Generat ed Referral 11/27/2023 12/26/2024 1 1 Additional Source Comments INFORMATION SOURCE (unrecogn ized section and content) DATE CREATED AUTHOR 07/22/2018 [facility] DATE CREATED AUTHOR AUTHOR'S ORGANIZ ATION 02/22/2024 [facility] Source Comments (unrecognize d section and content) In the event this informatio n is protected by the Federal Confidentiality of Alcohol and Drug Abuse Patient Records regulations: The Federal rules restrict any use of the information to criminally investigate or prosecute any alcohol or drug abuse patient.[facility] the event this information is protected by the Federal Confidentiality of Alcohol and Drug Abuse Patient Records regulations: The Federal rules restrict any use of the information to criminally investigate or prosecute any alcohol or drug abuse patient.[facility] HospitalIn the event this information is protected by the Federal Confidentiality of Alcohol and Drug Abuse Patient Records regulations: The Federal rules restrict any use of the information to criminally investigate or prosecute any alcohol or drug abuse patient.[facility] HospitalIn the event this information is protected by the Federal Confidentiality of Alcohol and Drug Abuse Patient Records regulations: The Federal rules restrict any use of the information to criminally investigate or prosecute any alcohol or drug abuse patient.[facility] HospitalIn the event this information is protected by the Federal Confidentiality of Alcohol and Drug Abuse Patient Records regulations: The Federal rules restrict any use of the information to criminally investigate or prosecute any alcohol or drug abuse patient.[facility] HospitalIn the event this information is protected by the Federal Confidentiality of Alcohol and Drug Abuse Patient Records regulations: The Federal rules restrict any use of the information to criminally investigate or prosecute any alcohol or drug abuse patient.[facility] HospitalIn the event this information is protected by the Federal Confidentiality of Alcohol and Drug Abuse Patient Records regulations: The Federal rules restrict any use of the information to criminally investigate or prosecute any alcohol or drug abuse patient.[facility] HospitalIn the event this information is protected by the Federal Confidentiality of Alcohol and Drug Abuse Patient Records regulations: The Federal rules restrict any use of the information to criminally investigate or prosecute any alcohol or drug abuse patient.[facility] HospitalIn the event this information is protected by the Federal Confidentiality of Alcohol and Drug Abuse Patient Records regulations: The Federal rules restrict any use of the information to criminally investigate or prosecute any alcohol or drug abuse patient.[facility] HospitalIn the event this information is protected by the Federal Confidentiality of Alcohol and Drug Abuse Patient Records regulations: The Federal rules restrict any use of the information to criminally investigate or prosecute any alcohol or drug abuse patient.[facility] HospitalIn the event this information is protected by the Federal Confidentiality of Alcohol and Drug Abuse Patient Records regulations: The Federal rules restrict any use of the information to criminally investigate or prosecute any alcohol or drug abuse patient.[facility] HospitalIn the event this information is protected by the Federal Confidentiality of Alcohol and Drug Abuse Patient Records regulations: The Federal rules restrict any use of the information to criminally investigate or prosecute any alcohol or drug abuse patient.[facility] HospitalIn the event this information is protected by the Federal Confidentiality of Alcohol and Drug Abuse Patient Records regulations: The Federal rules restrict any use of the information to criminally investigate or prosecute any alcohol or drug abuse patient.[facility] HospitalIn the event this information is protected by the Federal Confidentiality of Alcohol and Drug Abuse Patient Records regulations: The Federal rules restrict any use of the information to criminally investigate or prosecute any alcohol or drug abuse patient.[facility] HospitalIn the event this information is protected by the Federal Confidentiality of Alcohol and Drug Abuse Patient Records regulations: The Federal rules restrict any use of the information to criminally investigate or prosecute any alcohol or drug abuse patient.[facility] HospitalIn the event this information is protected by the Federal Confidentiality of Alcohol and Drug Abuse Patient Records regulations: The Federal rules restrict any use of the information to criminally investigate or prosecute any alcohol or drug abuse patient.[facility] HospitalIn the event this information is protected by the Federal Confidentiality of Alcohol and Drug Abuse Patient Records regulations: The Federal rules restrict any use of the information to criminally investigate or prosecute any alcohol or drug abuse patient.[facility] HospitalIn the event this information is protected by the Federal Confidentiality of Alcohol and Drug Abuse Patient Records regulations: The Federal rules restrict any use of the information to criminally investigate or prosecute any alcohol or drug abuse patient.[facility] HospitalIn the event this information is protected by the Federal Confidentiality of Alcohol and Drug Abuse Patient Records regulations: The Federal rules restrict any use of the information to criminally investigate or prosecute any alcohol or drug abuse patient.[facility] HospitalIn the event this information is protected by the Federal Confidentiality of Alcohol and Drug Abuse Patient Records regulations: The Federal rules restrict any use of the information to criminally investigate or prosecute any alcohol or drug abuse patient.[facility] HospitalIn the event this information is protected by the Federal Confidentiality of Alcohol and Drug Abuse Patient Records regulations: The Federal rules restrict any use of the information to criminally investigate or prosecute any alcohol or drug abuse patient.[facility] the event this information is protected by the Federal Confidentiality of Alcohol and Drug Abuse Patient Records regulations: The Federal rules restrict any use of the information to criminally investigate or prosecute any alcohol or drug abuse patient.[facility] HospitalIn the event this information is protected by the Federal Confidentiality of Alcohol and Drug Abuse Patient Records regulations: The Federal rules restrict any use of the information to criminally investigate or prosecute any alcohol or drug abuse patient.[facility] HospitalIn the event this information is protected by the Federal Confidentiality of Alcohol and Drug Abuse Patient Records regulations: The Federal rules restrict any use of the information to criminally investigate or prosecute any alcohol or drug abuse patient.[facility] the event this information is protected by the Federal Confidentiality of Alcohol and Drug Abuse Patient Records regulations: The Federal rules restrict any use of the information to criminally investigate or prosecute any alcohol or drug abuse patient.[facility] HospitalIn the event this information is protected by the Federal Confidentiality of Alcohol and Drug Abuse Patient Records regulations: The Federal rules restrict any use of the information to criminally investigate or prosecute any alcohol or drug abuse patient.[facility] HospitalIn the event this information is protected by the Federal Confidentiality of Alcohol and Drug Abuse Patient Records regulations: The Federal rules restrict any use of the information to criminally investigate or prosecute any alcohol or drug abuse patient.[facility] HospitalIn the event this information is protected by the Federal Confidentiality of Alcohol and Drug Abuse Patient Records regulations: The Federal rules restrict any use of the information to criminally investigate or prosecute any alcohol or drug abuse patient.[facility] HospitalIn the event this information is protected by the Federal Confidentiality of Alcohol and Drug Abuse Patient Records regulations: The Federal rules restrict any use of the information to criminally investigate or prosecute any alcohol or drug abuse patient.[facility] HospitalIn the event this information is protected by the Federal Confidentiality of Alcohol and Drug Abuse Patient Records regulations: The Federal rules restrict any use of the information to criminally investigate or prosecute any alcohol or drug abuse patient.[facility] Reason for Visit (unrecogniz ed section and content) Reason Onset Date Comments Population Health Navigation Outreach 08/12/2021 [employer] Care Gaps Reason Onset Date Comments Refill Request 10/20/2021 Reason Comments Throat Problem Dry x 2 months Reason Comments Insurance Authorization Reason Comments Refill Request Reason Comments order to lab for urine specimen Reason Comments Follow Up Reason Comments Patient Question Reason Onset Date Comments Refill Request 11/10/2022 Reason Comments Opened In Error Reason Comments Patient Update Reason Comments Yearly Exam Renew rx Reason Onset Date Comments Refill Request 06/18/2023 Reason Comments Hand Pain Right hand x 2 weeks , worse in the morning, numbness, no injury pt aware of. Reason Comments Medicare Wellness Exam Care Teams (unrecognized sec tion and content) Supervising Law Enforcement Analyst Relationship Specialty Start Date End Date Dallas Morrison, [address] [place] [address] PCP - General Family Practice 02/15/14 Supervising Law Enforcement Analyst Relationship Specialty Start Date End Date Dallas Morrison, DO [address] [place] [address] PCP - General Family Practice 02/15/14 Supervising Law Enforcement Analyst Relationship Specialty Start Date End Date Dallas Morrison, DO [address] [place] [address] PCP - General Family Practice 02/15/14 Supervising Law Enforcement Analyst Relationship Specialty Start Date End Date Dallas Morrison, DO [address] [place] [address] PCP - General Family Practice 02/15/14 Supervising Law Enforcement Analyst Relationship Specialty Start Date End Date Dallas Morrison, DO [address] [place] [address] PCP - General Family Practice 02/15/14 Supervising Law Enforcement Analyst Relationship Specialty Start Date End Date Dallas Morrison, DO [address] [place] [address] PCP - General Family Practice 02/15/14 Supervising Law Enforcement Analyst Relationship Specialty Start Date End Date Dallas Morrison, DO [address] [place] [address] PCP - General Family Medicine 02/15/14 Supervising Law Enforcement Analyst Relationship Specialty Start Date End Date Dallas Morrison, DO [address] [place] [address] PCP - General Family Medicine 02/15/14 Supervising Law Enforcement Analyst Relationship Specialty Start Date End Date Dallas Morrison, DO [address] [place] [address] PCP - General Family Medicine 02/15/14 Supervising Law Enforcement Analyst Relationship Specialty Start Date End Date Dallas Morrison, DO [address] [place] [address] PCP - General Family Medicine 02/15/14 Supervising Law Enforcement Analyst Relationship Specialty Start Date End Date Dallas Morrison, DO [address] [place] [address] PCP - General Family Medicine 02/15/14 Supervising Law Enforcement Analyst Relationship Specialty Start Date End Date Dallas Morrison, DO [address] [place] [address] PCP - General Family Medicine 02/15/14 Supervising Law Enforcement Analyst Relationship Specialty Start Date End Date Dallas Morrison, DO [address] [place] [address] PCP - General Family Medicine 02/15/14 Supervising Law Enforcement Analyst Relationship Specialty Start Date End Date Dallas Morrison, DO [address] [place] [address] PCP - General Family Medicine 02/15/14 Supervising Law Enforcement Analyst Relationship Specialty Start Date End Date Dallas Morrison, DO [address] [place] [address] PCP - General Family Medicine 02/15/14 Supervising Law Enforcement Analyst Relationship Specialty Start Date End Date Dallas Morrison, DO [address] [place] [address] PCP - General Family Medicine 02/15/14 Supervising Law Enforcement Analyst Relationship Specialty Start Date End Date Dallas Morrison, DO [address] [place] [address] PCP - General Family Medicine 02/15/14 Supervising Law Enforcement Analyst Relationship Specialty Start Date End Date Dallas Morrison DO [address] [place] [address] PCP - General Family Medicine 02/15/14 Supervising Law Enforcement Analyst Relationship Specialty Start Date End Date Dallas Morrison DO [address] [place] [address] PCP - General Family Medicine 02/15/14 Supervising Law Enforcement Analyst Relationship Specialty Start Date End Date Dallas Morrison DO [address] [facility] [place] [address] PCP - General Family Medicine 02/15/14 Supervising Law Enforcement Analyst Relationship Specialty Start Date End Date Dallas Morrison DO [address] [facility] [place] [address] PCP - General Family Medicine 02/15/14 Supervising Law Enforcement Analyst Relationship Specialty Start Date End Date Dallas Morrison DO [address] [facility] [place] [address] PCP - General Family Medicine 02/15/14 Supervising Law Enforcement Analyst Relationship Specialty Start Date End Date Dallas Morrison DO [address] [facility] [place] [address] PCP - General Family Medicine 02/15/14 Supervising Law Enforcement Analyst Relationship Specialty Start Date End Date Dallas Morrison DO [address] [facility] [place] [address] PCP - General Family Medicine 02/15/14 Supervising Law Enforcement Analyst Relationship Specialty Start Date End Date Dallas Morrison DO [address] [facility] [place] [address] PCP - General Family Medicine 02/15/14 Supervising Law Enforcement Analyst Relationship Specialty Start Date End Date Dallas Morrison DO [address] [facility] [place] [address] PCP - General Family Medicine 02/15/14 Supervising Law Enforcement Analyst Relationship Specialty Start Date End Date Dallas Morrison DO [address] [place] [address] PCP - General Family Medicine 02/15/14 Supervising Law Enforcement Analyst Relationship Specialty Start Date End Date MorrisonDallas king DO Ghanshyam [address] [place] [address] PCP - General Family Medicine 02/15/14 FOR RECORDS PERTAINING TO PATIENTS WHO ARE OR HAVE BEEN ENROLLED IN A CHEMICAL DEPENDENCY/SUBSTANCEABUSE PROGRAM, SOME INFORMATION MAY BE OMITTED. This clinical summary was aggregated from multiple sources. Caution should be exercised in using it in the provision of clinical care. This summary normalizes information from multiple sources, and as a consequence, information in this document may materially change the coding, format and clinical context of patient data. In addition, data may be omitted in some cases. CLINICAL DECISIONS SHOULD BE BASED ON THE PRIMARY CLINICAL RECORDS. [employer] provides no warranty or guarantee of the accuracy or completeness of information in this document.
[2024-03-09 06:26] VITALS: BP 145/79; PULSE 72; RESP 17; TEMP 36.6; O2SAT 97; BMI 25.3
[2024-03-09 06:41] VITALS: BP 145/79; PULSE 72; RESP 17; TEMP 36.6; O2SAT 97
--- NOTE | 2024-03-09 06:41 | PCM.PRE.AN2 ---
ASA Classification* ASA Classification ASA Classification: 2 Assessment & Plan Anesthesia* Anesthesia Assessment Anesthesia Assessment: Discussed sedation and/or anesthesia options, risks, benefits, and alternatives with patient/parents/legal guardian/POA. Questions invited. The patient/parents/legal guardian/POA seems to understand and agrees to proceed with anesthesia plan. Reviewed the physical assessment, medical history, allergy history and patient home medications list prior to surgery/procedure/anesthetic and documented any changes. Performed airway and anesthesia risk assessments. Anesthesia Type Anesthesia Type: MAC Anesthesia Focused Assessment* Temperature: 97.8 F Pulse Rate: 72 Blood Pressure: 145/79 Respiratory Rate: 17 Pulse Ox: 97 Airway Assessment Mouth opens: >3 cm Mallampati Score: II Focused Labs Anesthesia Preop lab: CBC CHEMISTRY COAG Pre-Assessment Diagnosis/Proposed Procedure Planned Operative Procedure(s): (R) Endoscopic Carpal Tunnel Release Anesthesia History Anesthesia History - population health manager: Anesthesia History - population health manager Hx Hospitalization No 03/01/24 15:23 Any Problems With Anesthesia No 03/01/24 15:23 Cholinesterase deficiency No 03/01/24 15:23 You/Your Family Experience No 03/01/24 15:23 fever (hyperthermia) with Relationship Recent Exposure to Contagious No 03/09/24 06:26 Disease Does patient have nerve No 03/01/24 15:23 stimulator Patient instructed to have device shut off --Does patient have Pacemaker No 03/09/24 06:26 or ICD? When Was Last Pacemaker Check QUESTION #4 FULL TEXT: You/Your Family Experience fever (hyperthermia) with Anesthesia Last Oral Intake Last Oral intake: Last Oral Intake NPO since 04:00 03/09/24 06:26 Meds taken in AM with sips of Yes 03/09/24 06:26 water? Meds patient instructed to take am of surgery PONV PONV - population health manager: PONV - population health manager Female Yes 03/01/24 15:23 HX of Motion Sickness Yes 03/01/24 15:23 HX of N/V After Surgery No 03/01/24 15:23 Non-Smoker Yes 03/01/24 15:23 Duration of Surgery greater No 03/01/24 15:23 than 60 minutes Number of Risk Factors 3 03/01/24 15:23 PONV Score Moderate Risk 03/01/24 15:23 Height & Weight Height & Weight: Anesthesia: Height & Weight Height 5 ft 4 in 03/09/24 06:26 Weight: 67 kg 03/09/24 06:26 Body Mass Index (BMI) 25.3 03/09/24 06:26 Respiratory Assessment Respiratory Assessment - population health manager: Respiratory Tract Infection Hx - population health manager Hx Respiratory Tract Infection No 03/01/24 15:23 STOP Sleep Apnea STOP Sleep Apnea - population health manager: STOP Sleep Apnea - population health manager Hx Hypertension Yes: controlled with med 03/01/24 15:23 Hx Sleep Apnea No 03/01/24 15:23 CPAP BIPAP Do you snore loudly (louder No 03/01/24 15:23 than talking or can be heard Do you often feel tired/ No 03/01/24 15:23 fatigued/ sleepy during daytime? Has anyone observed you stop No 03/01/24 15:23 breathing during sleep? STOP Results Negative 03/01/24 15:23 QUESTION #5 FULL TEXT : Do you snore loudly (louder than talking or can be heard through closed doors)? 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 Specify any problems Hx of Preganancy in last 3 N/A 03/01/24 15:23 Months Nurse Filling Out Transfusion NBUCHER 03/01/24 15:23 & Questions: Date: 03/01/24 03/01/24 15:23 Time: 03/01/24 15:23 Patient unable to answer at this time (ie. confused, unrespo /Reproduction History /Reproductive History - population health manager: /Reproductive Hx- population health manager Hx Now No 03/01/24 15:23 Gestational Age (in weeks): EDC: Hx Hx Para Hx Section SAB No 03/01/24 15:23 Active Medications Active Medications: Current Medications Generic Name Dose Route Start Last Admin Trade Name Freq PRN Reason Stop Dose Admin Cefazolin Sodium 2 gm/ N/A 20 mls @ 400 mls/hr 03/09/24 07:30 IV 03/09/24 07:32 PREOP ONE [facility] Medical History Wears glasses Post-menopausal Alcohol use Thyroid disease High cholesterol Migraine headache GERD (gastroesophageal reflux disease) Former smoker Bilateral carpal tunnel syndrome Plantar fasciitis, bilateral Heart disease Hypertension Home Medications ?Medication ?Instructions ?Recorded ?Last Taken ?Type amitriptyline 50 mg tablet 50 mg PO QHS 12/22/23 03/08/24 History levothyroxine 75 mcg tablet 75 mcg PO DAILY 12/22/23 03/09/24 History losartan 25 mg tablet 25 mg PO QDAY 12/22/23 03/09/24 History pantoprazole 40 mg tablet,delayed 40 mg PO QDAY 12/22/23 03/09/24 History release rosuvastatin 5 mg tablet 5 mg PO QDAY 12/22/23 03/08/24 History sertraline 100 mg tablet 100 mg PO QDAY 12/22/23 03/08/24 History Allergy/AdvReac Type Severity Reaction Status Date / Time No Known Allergies Allergy Verified 03/09/24 06:25 Family History Other Cancer Heart disease Hypertension Surgical History History of left knee surgery History of right knee surgery Social History Smoking Status: Former smoker alcohol intake: current alcohol intake frequency: a few times a week what type of physical activity do you participate in: walking and other details: pickleball Review of Systems (Anesthesia) ROS Narrative System reviewed and no additional complaints, except as documented.
--- NOTE | 2024-03-09 07:08 | PCM.HP.STD ---
HPI - General HPI Narrative RAVEN CAMPBELL, is a 73 F who presents for right endoscopic carpal tunnel release. no changes to h and p. right wrist marked. rab, post op instructions discussed. typically no narcotics after. FU 2 days. her and significant other understood, no further questions or concerns. dr martínez plan for [facility] – [place], [place]. MR#: [id number] Acct: [id number] Name: RAVEN CAMPBELL Rep #: [id number] : 1950 Provider: Dr. Freddy Claire MD Age/Sex: 73/F Location: [facility] [place] Status: Signed Intake Vital Signs 12/21/2409:19 Height 5 ft 4 in Weight: 155 lb 4 oz BMI 26.6 Intake Visit Reasons: BL HANDS Chief Complaint: bilateral numbness and tingling Accompanied by: Self Is patient in pain?: Yes Pain scale (1-10): 7 Allergies No Known Allergies Allergy (Unverified 02/08/24 14:30) Medications ?Medication ?Instructions ?Recorded ?Confirmed ?Type amitriptyline 50 mg tablet 50 mg PO QHS 12/22/23 02/08/24 History levothyroxine 75 mcg tablet 75 mcg PO 12/22/23 02/08/24 History losartan 25 mg tablet 25 mg PO QDAY 12/22/23 02/08/24 History pantoprazole 40 mg tablet,delayed 40 mg PO QDAY 12/22/23 02/08/24 History release rosuvastatin 5 mg tablet 5 mg PO QDAY 12/22/23 02/08/24 History sertraline 100 mg tablet 100 mg PO QDAY 12/22/23 02/08/24 History Have you fallen in the past year?: No PFSH Medical History Bilateral carpal tunnel syndrome Plantar fasciitis, bilateral Heart disease Diabetes Hypertension Surgical History History of left knee surgery History of right knee surgery Family History Other Cancer Heart disease Hypertension Social History Smoking Status: Former smoker alcohol intake: current alcohol intake frequency: a few times a week what type of physical activity do you participate in: walking and other details: pickleball HPI BL HANDS Details: This documentation accurately reflects the service provided and the decisions made by me, Dr. Freddy Claire MD 02/08/24 [id number]. Part of today?s visit was documented by [ ], acting as scribe. RAVEN CAMPBELL is a 73 year old F here today for FU bilat ncs for CTS. patient still having some symptoms numbness into the right side especially in the index and middle finger. Patient has tried the nighttime braces but is more interested in surgery the braces are not helping Ortho Exam General General: Yes no acute distress Neurologic: Yes alert and Yes oriented x3 Psychologic: Yes reasonable and appropriate Right Wrist/Hand Skin/Wound: Yes CDI, No Swelling, No Ecchymosis, Yes nail intact and Yes capillary refill normal Sensation: Median: D WRIST: has a mild dupuytrens nodule 4th digit, no contracture. Left Wrist/Hand Skin/Wound: No Swelling and No Ecchymosis Supplemental Info [facility] Services/Neurology [address] [place] [address] MR#: [id number] Acct: [id number] Name: RAVEN CAMPBELL Rep #: [id number] : 1950 73 From: Stephany Saavedra MD Referring Dr: Freddy Claire MD Status: REG CLI Location: N Date: 02/03/24 Sex: F C NCS and/or EMG Patient Report Ordering Doctor: Freddy Claire DATE OF SERVICE: 02/03/24 Raven presents with numbness and tingling both hands, worse on the right side. Electrodiagnostic findings: Right median motor nerve demonstrates prolonged latency with normal amplitude and conduction velocity. Left median motor nerve demonstrates normal distal latency and amplitude with normal conduction velocity. Ulnar motor response is normal bilaterally. Normal median and ulnar F?waves. Prolonged median sensory latency at the wrist bilaterally. Normal ulnar and radial sensory responses. Needle EMG testing was performed in the upper limbs. All muscles tested showed no evidence of denervation with normal motor unit action potentials. Electrodiagnostic impression: This is an abnormal study in the upper limbs. 1. Electrodiagnostic findings suggestive of bilateral median mononeuropathy. This is consistent with a mild to moderate right carpal tunnel syndrome and a mild left carpal tunnel syndrome. 2. No electrodiagnostic evidence is noted for cervical radiculopathy. Multi Select Codes Neurology Neurology Interp Codes: 89613-75 Musc test done w/n test comp (interp) (2) and 66509-79 Nrv cndj test 9-10 studies (interp) Coding Level of Care Code Off vis,est,level 3 Diagnoses Bilateral carpal tunnel syndrome G56.03 Assessment and Plan Assessment and Plan (1) Bilateral carpal tunnel syndrome: Status: Acute Plan: 73 F with nerve studies showing bilateral CTS. this is slightly worse on the right side and certainly that is the patient's more symptomatic side. I explained the diagnosis prognosis different treatment options available to the patient include but not limited to rest ice anti-inflammatories active modifications physical therapy nerve gliding cortisone injection as well as open or endoscopic surgery. This can become worse or more permanent with time. The results in the patient over 70 may be a little bit more unpredictable but overall the patient is a healthy non-smoker no diabetes so I do expect that she has a good chance of success. Endoscopic may have a higher rate of incomplete release but quick return to function and less pain. The patient understands wants to go ahead with and signed the consent form for right endoscopic carpal tunnel release. Pros and cons risks and benefits were discussed with the patient including but not limited to infection, pain, stiffness, bleeding, damage to surrounding structures, neurovascular injury, recurrence or retear, failure or wear of hardware or fixation, instability, fracture, deep vein thrombosis and pulmonary embolism, anesthetic risks, , patient dissatisfaction, need for further surgery and other risks. Patient understood and wished to proceed with surgery, and signed the informed consent documentation. [facility] Medical History Wears glasses Post-menopausal Alcohol use Thyroid disease High cholesterol Migraine headache GERD (gastroesophageal reflux disease) Former smoker Bilateral carpal tunnel syndrome Plantar fasciitis, bilateral Heart disease Hypertension Home Medications ?Medication ?Instructions ?Recorded ?Last Taken ?Type amitriptyline 50 mg tablet 50 mg PO QHS 12/22/23 03/08/24 History levothyroxine 75 mcg tablet 75 mcg PO DAILY 12/22/23 03/09/24 History losartan 25 mg tablet 25 mg PO QDAY 12/22/23 03/09/24 History pantoprazole 40 mg tablet,delayed 40 mg PO QDAY 12/22/23 03/09/24 History release rosuvastatin 5 mg tablet 5 mg PO QDAY 12/22/23 03/08/24 History sertraline 100 mg tablet 100 mg PO QDAY 12/22/23 03/08/24 History Allergy/AdvReac Type Severity Reaction Status Date / Time No Known Allergies Allergy Verified 03/09/24 06:25 Family History Other Cancer Heart disease Hypertension Surgical History History of left knee surgery History of right knee surgery Social History Smoking Status: Former smoker alcohol intake: current alcohol intake frequency: a few times a week what type of physical activity do you participate in: walking and other details: pickleball Vital Signs Vital Signs Vital Signs: 03/09/24 06:26 03/09/24 06:26 03/09/24 06:41 Temperature 97.8 F 97.8 F Temperature Source Temporal Pulse Rate 72 72 Respiratory Rate 17 17 Respiratory Pattern Normal Blood Pressure 145/79 H 145/79 H Blood Pressure Mean 101 Blood Pressure Source Monitor Blood Pressure Position Semi-Fowlers Blood Pressure Location Left Arm Pulse Ox 97 97 Oxygen Delivery Method Room Air Weight Weight: 147 lb 11.355 oz Body Mass Index (BMI) 25.3
[2024-03-09] MEDS: Cefazolin 2 GM in Syringe IV (07:23)
[2024-03-09] MEDS: Bupivacaine 0.25% 30 ML Vial (07:23)
--- NOTE | 2024-03-09 07:59 | PCM.OPRPT ---
Problems Associated Problem List Diagnoses (1) Bilateral carpal tunnel syndrome: Procedures Musculoskeletal 20xxx-29xxx: Other Procedure See Report Operative Report (Standard) Operative Information Surgery/Procedure Performed:: right endoscopic carpal tunnel release Surgeon: Freddy Claire RN Documented Start/Stop Times: Operation Date: 03/09/24 07:30 Case Time Into Pre-Op 03/09/24 05:57 Out of Pre-Op 03/09/24 07:16 Anesthesia Start 03/09/24 07:23 Into Room 03/09/24 07:23 Procedure Start 03/09/24 07:41 Procedure End 03/09/24 07:54 Date of Procedure: 03/09/24 Procedure Start Time: 07:41 Procedure Stop Time: 07:54 Pre-Operative Diagnosis: right carpal tunnel syndrome Post-Operative Diagnosis: same Select all DRAINS/GRAFTS/IMPLANTS that apply:: None Type of Anesthesia: Local MAC Estimated Blood Loss: 10 Specimen collected: No Description of surgery: Patient brought to the operating room theater. Placed upon on the table. MAC anesthesia induced by the anesthetic team. Patient placed supine on the table all bony prominences padded. SCDs on the legs. Bed turned 90 degrees. Hand table used. Tourniquet applied properly padded to the upper extremity. Upper extremity prepped and draped in the usual sterile fashion with chlorhexidine-based prep solution allowing over 3 minutes drying time prior to draping. Preoperative timeout performed to confirm the site patient and the surgery. Began by elevating the limb and inflated the tourniquet to 250 mmHg. I used the Arthex nova endoscopic carpal tunnel kit / technique. I made a transverse 2 cm incision in line with the? transverse wrist crease.? This was in line with the fourth digit.? I carried the dissection down through skin and subcutaneous tissue achieved meticulous hemostasis. Just ulnar to palmaris tendon.? I incised the antebrachial fascia.? I passed sequential dilators into the carpal tunnel along the radial border of the Guyon's canal aiming for the fourth digit with the hand in extension.? I used a synovial elevator to identify the transverse fibers of the transverse carpal tunnel ligament.? Passed the scope into the carpal tunnel. Once I had identified the full proximal and distal extent of the ligament I fully released the ligament under direct visualization by deploying the blade and slowly withdrawing the scope made sequential passes until I no longer felt tension as well as the entire extent of the ligament was released under direct visualization.? Sounded the tunnel with thomas tenotomy scissors, complete release, no bands. Arthroscope light was more visible through the skin. Pictures taken and saved. Wounds thoroughly irrigated.? 4cc 0.25% bupivicaine for local anesthesia. Tourniquet let down prior to end of the case and meticulous hemostasis achieved.? Thorough irrigation.? ? Incisions closed with 3-0 vicryl and 3-0 moncryl for the skin.?Then adaptic 4x4 gauze and arun. Patient woken up,? transferred off the operating room table and taken to postanesthetic care unit in stable condition. All sponge needle instrument counts were correct no complications.?Plan for the patient to be discharged home according to day surgery criteria when they are comfortable. Follow-up in the office in 2 days time. Gentle ROM hand and elbow no heavy [place]. 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
--- NOTE | 2024-03-09 08:03 | EX.PCM.DISCH ---
Discharge Instructions Diet Discharge Diet: No restrictions Activity Discharge Activity: Return to Normal Activity Ice area for (Minutes): 10 Lifting Restrictions: no lifting over one pound, ok for hand wrist elbow ROM gently Keep extremity elevated above heart level: Operative Extremity Dressing / Incision Call your doctor if your incision/area has: Continuous Slow Oozing, Sudden Increased Bleeding, Increased Pain/ Swelling, Increased Redness, Foul Smelling Discharge and Swelling at the incision site Call your doctor if you observe: Fever of 101 or Higher, Coldness, Increased Pain and Numbness or Tingling Remove Dressing in: leave in place till F/U Cleanse incision/area with: Do not get Incision Wet Follow Up Care Please Follow Up With: Freddy Claire MD When: 2 days Test Results: Test results from this visit will be discussed in further detail at your follow-up appointment, if applicable. Discharge Plan Admission Attending Provider: Freddy Claire Primary Care Provider: Dallas Simms Instructions Print Language: Peruvian Discharge Orders/Prescriptions Prescriptions: No Action amitriptyline 50 mg tablet 50 mg PO QHS sertraline 100 mg tablet 100 mg PO QDAY levothyroxine 75 mcg tablet 75 mcg PO DAILY pantoprazole 40 mg tablet,delayed release (DR/EC) 40 mg PO QDAY losartan 25 mg tablet 25 mg PO QDAY rosuvastatin 5 mg tablet 5 mg PO QDAY Referrals / Follow Up: Dallas Simms DO [Primary Care Provider] - Freddy Claire MD [Med Staff - Active Staff] - Disposition Disposition (needs filled in before D/C Order can be placed): Home, Self Care
[2024-03-09 08:04] VITALS: BP 139/72; BP 145/79; PULSE 89; RESP 16; RESP 18; TEMP 36.9; O2SAT 91; O2SAT 93
--- NOTE | 2024-03-09 08:04 | PCM.POST.ANE ---
Anesthesia: Postop Eval I Current Vital Signs Temperature: 98.4 F Pulse Rate: 89 Blood Pressure: 139/72 Respiratory Rate: 18 Pulse Ox: 93 Assessment Airway patent: Yes Spontaneous unlabored respirations: Yes nausea: No Vomiting: No Anesthesia Complication: No Fluid Hydration Crystalloid volume administer (ml): 10 Total IV fluid infused: 10 Progress Note Anesthesia document: Postop Eval 1 completed: Yes
[2024-03-09 08:10] VITALS: BP 113/82; BP 145/79; PULSE 83; RESP 16; O2SAT 91
[2024-03-09 08:15] VITALS: BP 128/79; BP 145/79; PULSE 78; RESP 16; TEMP 36.7; O2SAT 92
--- NOTE | 2024-03-09 08:17 | POSTOPAN2_ITS ---
Anesthesia Postop Eval I Sum Postop Eval Completion status Anesthesia document: Postop Eval 1 completed: Yes Anesthesia Postop Eval I Summary Anesthesia Postop Eval I Summary: Anesthesia Postop Eval I: Assessment Summary Airway patent Yes 03/09/24 08:04 SUPERVISOR/PORT DIRECTOR.CSIR Spontaneous unlabored Yes 03/09/24 08:04 SUPERVISOR/PORT DIRECTOR.CSIR respirations Mental status nausea No 03/09/24 08:04 SUPERVISOR/PORT DIRECTOR.CSIR Vomiting No 03/09/24 08:04 SUPERVISOR/PORT DIRECTOR.CSIR Anesthesia Postop Eval I: Fluid Summary Crystalloid volume administer 10 03/09/24 08:04 SUPERVISOR/PORT DIRECTOR.CSIR (ml) Colloids volume administered ( ml) Blood Product volume administered (ml) Total IV fluid infused 10 03/09/24 08:04 SUPERVISOR/PORT DIRECTOR.CSIR Anesthesia Postop Eval I: Summary Notes Anesthesia Complication No 03/09/24 08:04 SUPERVISOR/PORT DIRECTOR.CSIR Anesthesia Complication Comment: Post-operative progress note Anesthesia: Postop Eval II Evaluation Mental status: Awake Pain Level: 0 nausea: No Vomiting: No
--- NOTE | 2024-03-09 08:17 | PCM.POSTANE2 ---
Anesthesia Postop Eval I Sum Postop Eval Completion status Anesthesia document: Postop Eval 1 completed: Yes Anesthesia Postop Eval I Summary Anesthesia Postop Eval I Summary: Anesthesia Postop Eval I: Assessment Summary Airway patent Yes 03/09/24 08:04 REGULATORY COMPLIANCE DIRECTOR.CSIR Spontaneous unlabored Yes 03/09/24 08:04 REGULATORY COMPLIANCE DIRECTOR.CSIR respirations Mental status nausea No 03/09/24 08:04 REGULATORY COMPLIANCE DIRECTOR.CSIR Vomiting No 03/09/24 08:04 REGULATORY COMPLIANCE DIRECTOR.CSIR Anesthesia Postop Eval I: Fluid Summary Crystalloid volume administer 10 03/09/24 08:04 REGULATORY COMPLIANCE DIRECTOR.CSIR (ml) Colloids volume administered ( ml) Blood Product volume administered (ml) Total IV fluid infused 10 03/09/24 08:04 REGULATORY COMPLIANCE DIRECTOR.CSIR Anesthesia Postop Eval I: Summary Notes Anesthesia Complication No 03/09/24 08:04 REGULATORY COMPLIANCE DIRECTOR.CSIR Anesthesia Complication Comment: Post-operative progress note Anesthesia: Postop Eval II Evaluation Mental status: Awake Pain Level: 0 nausea: No Vomiting: No
[2024-03-09 08:30] VITALS: BP 145/79
[2024-03-09] MEDS: HYDROcodone Bitartrate/Apap 5/325 Tablet PO (08:37)
== END 2024-03-09 08:52 | disposition home or self-care (01) ==
LOC: SDC 05:54 → AC 05:56
PROVIDERS: PCP Student in an Organized Health Care Education/Training Program; Referring Provider Orthopaedic Surgery Sports Medicine; Visit Provider Orthopaedic Surgery Sports Medicine
PROC: (CPT 29848; principal; 2024-03-09 07:15)
DX: G56.03 Carpal tunnel syndrome, bilateral upper limbs (principal); E11.9 Type 2 diabetes mellitus without complications; E78.00 Pure hypercholesterolemia, unspecified; I10 Essential (primary) hypertension; Z87.891 Personal history of nicotine dependence; E03.9 Hypothyroidism, unspecified
CPT/HCPCS: 29848; 01810; A4216; J2405